=== PATIENT | female | born 1945 | race Caucasian/White ===

== ENCOUNTER 2019-05-14 09:33 | Inpatient (IN) ==
[~2019-05-14 09:33] MED LIST: *HR* Heparin 10,000 UNIT/10 ML VIAL IV ONE; *HR* Magnesium Sulfate 2 GM/50 ML PIGGYBACK IVPB ONE; *HR* Phenylephrine 10 MG/ML VIAL IVC ONE; Albumin Human 25% 25 GM/100 ML IV.SOLN IV ONE; Lidocaine 2% Syringe 100 MG/5 ML IV ONE; Mannitol 25% vial 12.5 GM/50 ML VIAL IVP ONE; Sodium Bicarbonate 50 MEQ/50 ML VIAL IVC ONE; Tranexamic Acid 1,000 MG/10 ML VIAL IVPB ONE
[2019-05-14] MEDS ORDERED: Heparin 1,000 UNITS/500 mL 500 ML ONE ×2 (09:39→11:32)
[2019-05-14] MEDS ORDERED: Nitroglycerin 1,000 MCG/10 ML VIAL IV ONE (09:39)
[2019-05-14] MEDS ORDERED: 0.9 % Sodium Chloride 1,000 ML ONE ×3 (09:39→11:45)
[2019-05-14] MEDS ORDERED: *HR* Heparin 10,000 UNIT/10 ML VIAL ONE (09:39)
[2019-05-14] MEDS ORDERED: Iopamidol 125 ML INFUS..BTL ONE ×2 (09:39→10:49)
[2019-05-14] MEDS ORDERED: 0.9 % Sodium Chloride 1,000 ML IVC SCH (10:00)
--- NOTE | 2019-05-14 10:25 | Cardiology History & Physical ---
Date of Encounter: 05/14/19 Time of Encounter: 12:29 Assessment and Plan (1) Angina decubitus Current Visit: Yes Status: Acute The assessment and plan as outlined above was discussed with the patient and/or family members who expressed understanding and agreement. All questions were answered. (2) Angina of effort Current Visit: Yes Status: Acute The assessment and plan as outlined above was discussed with the patient and/or family members who expressed understanding and agreement. All questions were answered. History of Present Illness Chief complaint: chest pain HPI: Ms. Vasquez is a 74 year old female with cardiac risk facotros of age, HTN , HLD and + FH for CAD. She has had consistent and recurrent exertional angina and underwent stress testing that was abnormal. Symptoms have been persistent on medical therapy. She is referred now for cath Past Med Surg Social Fam HX - Past Medical History Medical history: GERD, hyperlipidemia, hypertension Psychiatric history: anxiety, depression - Past Surgical History Surgical History: hysterectomy Additional surgical history: LEFT ANKLE SURGERY,BILATERAL SHOULDER SURGERY - Social History Smoking Status: Never smoker Smokeless Tobacco Status: No Alcohol use: occasionally Drug use: none Medications and Allergies Losartan Potassium [Cozaar] 100 mg PO DAILY 10/09/18 [History] Metoprolol [Lopressor] 50 mg PO DAILY 10/09/18 [History] Sertraline [Zoloft] 50 mg PO DAILY 10/09/18 [History] hydroCHLOROthiazide [Hydrochlorothiazide] 25 mg PO DAILY 10/09/18 [History] Nitroglycerin [Nitrostat] 0.4 mg SL Q5M PRN 05/14/19 [History] Pregabalin [Lyrica] 50 mg PO BID 05/14/19 [History] Allergy/AdvReac Type Severity Reaction Status Date / Time No Known Allergies Allergy Verified 10/16/17 21:56 All Systems Review: The remainder of the systems were reviewed and are negative negative Physical Examination Vital Signs, Last 4 Hours Temp Pulse Resp BP Pulse Ox 05/14/19 09:59 97.5 F L 66 16 162/64 100 General: Conversant HEENT: Atraumatic Neck: No JVD Cardiac: Normal S1 and S2, No Murmur Lungs: Normal Breath Sounds Neuro: Alert and responsive Abdomen: Soft, Non-Tender Skin: No rashes noted on visualized skin Musculoskeletal: No Chest Wall Tenderness Extremities: No Clubbing Results 05/14/19 11:53
--- NOTE | 2019-05-14 10:27 | Pre-Sedation Evaluation ---
Pre-sedation evaluation - Pre-sedation checklist Date of procedure: 05/14/19 Procedure: [facility] Recent Vitals: Last Vital Signs Temp 97.5 F L 05/14/19 09:59 Pulse 66 05/14/19 09:59 Resp 18 05/14/19 09:59 BP 162/64 05/14/19 09:59 Pulse Ox 100 05/14/19 09:59 H&P (including ROS) documented in medical record: Yes Previous reaction to sedatives/anesthetics: No Dietary Status: NPO after Midnight Dentition: No loose teeth or bridges Possible difficult airway: No ASA Classification *see protocol: CLASS II-Mild systemic disease Cardiac Registry (Cardio Only) - Functional Capacity Functional Capacity: >=4 METS with symptoms - Clincal Frailty Scale Clinical Frailty Scale: Very Fit
[2019-05-14] MEDS ORDERED: *HR* Midazolam HCl 2 MG/2 ML VIAL ONE ×2 (10:32→11:14)
[2019-05-14] MEDS ORDERED: Verapamil 5 MG/2 ML VIAL ONE ×2 (10:35→12:34)
[2019-05-14] MEDS ORDERED: *HR* Atropine Sulfate 1 MG/10 ML SYRINGE ONE (10:53)
[2019-05-14] MEDS ORDERED: *HR* FentaNYL (PF) 100 MCG/2 ML VIAL ONE (10:56)
[2019-05-14] MEDS ORDERED: Nitroglycerin Spray 4.9 GM BOTTLE ONE (11:18)
[2019-05-14] MEDS ORDERED: Nitroglycerin 25 MG/250 ML INFUS..BTL IVC ONE ×2 (11:22→12:44)
[2019-05-14] MEDS ORDERED: Dextrose 50 % in Water (Vial) 30 ML, Sodium Bicarbonate 20 MEQ, Lidocaine 1% 5 ML, Insu... TH ONE ×3 (11:45)
[2019-05-14] MEDS ORDERED: Insulin Human Regular 100 UNIT in 0.9 % Sodium Chloride 100 ML IV PRN (11:45)
[2019-05-14] MEDS ORDERED: Heparin 15,000 UNIT in 0.9 % Sodium Chloride 500 ML IV ONE (11:45)
[2019-05-14] MEDS ORDERED: Norepinephrine 4 MG in 0.9 % Sodium Chloride 250 ML IVC PRN (11:45)
[2019-05-14] MEDS ORDERED: Dextrose 50 % in Water (Vial) 30 ML, Sodium Bicarbonate 20 MEQ, Potassium Chloride 15 M... TH ONE (11:45)
--- NOTE | 2019-05-14 12:00 | Event Note ---
Date of Encounter: 05/14/19 Time of Encounter: 11:57 - Cardiology Event Note Cath completed LV normal RCA very long diffuse severe disease. 90% severity. Unable to cross with wire. Patient was having angina during procedure prompting the attempt at crossing with wire. LCA Mid distal lad lesion 55% Circ normal Given angina in lab, IABP placed for support and set at 1:1 . Patient pain free with IBAP To OR today for urgent cabg. Patient and family updated.
[2019-05-14 12:16] LABS: Basophils # 0.1 K/mcL (0.0-0.2); Basophils % 1.1 %; Eosinophils # 0.2 K/mcL (0.0-0.6); Eosinophils % 2.7 %; Hematocrit 35.5 % (35.3-44.9); Hemoglobin 11.8 g/dL (11.5-15.4); Immature Granulocytes % 0.3 % (0-4); Lymphocytes # 1.9 K/mcL (0.6-4.6); Mean Corpuscular HGB Conc 33.2 g/dL (31.6-35.5); Mean Corpuscular Volume 84.1 fL (83.0-100.0); Mean Platelet Volume 10.4 fL (9.4-12.4); Monocytes # 0.6 K/mcL (0.0-1.3); Monocytes % 8.7 %; Neutrophils # 3.6 K/mcL (1.6-8.9); Platelet Count 240 K/mcL (140-400); Red Blood Count 4.22 M/mcL (3.82-4.97); Red Cell Distribution Width 14.6 % (11.5-14.5); Segmented Neutrophils % 57.2 %; White Blood Count 6.3 K/mcL (4.3-11.1)
[2019-05-14] MEDS ORDERED: FLU Vac QV 19-20 (6Month+)/PF 0.5 ML SYRINGE IM ONE (12:32)
--- NOTE | 2019-05-14 12:33 | Cardiothoracic Consult Note ---
Date of Encounter: 05/14/19 Time of Encounter: 12:29 Assessment and Plan (1) Angina of effort Current Visit: Yes Status: Acute The assessment and plan as outlined above was discussed with the patient and/or family members who expressed understanding and agreement. All questions were answered. The patient has a tight right coronary artery lesion it was unable to be opened with PTCA. We plan to take her to the OR for coronary bypass grafting to the di stal right coronary artery or posterior descending branch of the right coronary artery. This is an emergent procedure. She is presently pain-free on a nitroglycerin drip and a torted balloon pump. The procedure, its risks, benefits and alternatives were explained to the patient and her . Risks of surgery include , infection, bleeding, myocardial infarction, clots around the heart, renal or respiratory failure, acute or chronic graft closure, phrenic nerve injury and sternal dehiscence. The patient and her family wish to proceed. - History of Present Illness History of present illness: Ms. Vasquez is a 74 year old female The patient is a 74-year-old female who underwent cardiac catheterization and attempted PTCA today. The catheterization revealed a tight, 99% right coronary artery lesion that was quite long. A wire could not be placed across the lesion. The LAD has a distal lesion that the takeoff of a diagonal branch, but in most views looks to be widely patent. The patient developed chest pain in the heart catheterization lab. This was initially relieved with a nitroglycerin drip. However, the patient developed recurrent pain and an intra-aortic balloon pump was placed. We plan to take her to the operating room for emergent coronary artery bypass grafting to the right coronary artery. Past medical history is notable for hypertension and hypercholesterolemia. No history of diabetes. There is a strong positive family history for coronary artery disease. The patient lives with her and is an active golfer and assistant coach. She does not smoke. Review of systems is negative for stroke or TIA and negative for saphenous vein varicosities or strippings. Past Med Surg Social Fam HX - Past Medical History Medical history: GERD, hyperlipidemia, hypertension Psychiatric history: anxiety, depression - Past Surgical History Surgical History: hysterectomy Additional surgical history: LEFT ANKLE SURGERY,BILATERAL SHOULDER SURGERY - Social History Smoking Status: Never smoker Smokeless Tobacco Status: No Alcohol use: occasionally Drug use: none Medications and Allergies Losartan Potassium [Cozaar] 100 mg PO DAILY 10/09/18 [History] Metoprolol [Lopressor] 50 mg PO DAILY 10/09/18 [History] Sertraline [Zoloft] 50 mg PO DAILY 10/09/18 [History] hydroCHLOROthiazide [Hydrochlorothiazide] 25 mg PO DAILY 10/09/18 [History] Nitroglycerin [Nitrostat] 0.4 mg SL Q5M PRN 05/14/19 [History] Pregabalin [Lyrica] 50 mg PO BID 05/14/19 [History] Allergy/AdvReac Type Severity Reaction Status Date / Time No Known Allergies Allergy Verified 10/16/17 21:56 All Systems Review: The remainder of the systems were reviewed and are negative Physical Examination Vital Signs, Last 4 Hours Temp Pulse Resp BP Pulse Ox 05/14/19 09:59 97.5 F L 66 16 162/64 100 Pupils are equal, round and reactive to light and accommodation. No oral lesions. Neck is supple. Trachea in the midline. No thyromegaly or carotid bruits. Lungs are clear to percussion and auscultation. Heart is in a regular rate and rhythm. Abdomen is benign. No tenderness, rebound or guarding. Extremities without edema. No saphenous vein varicosities or strippings. Cranial nerves, motor and sensory intact. Results 05/14/19 11:53 Lab Results, Last 24 hours 05/14/19 11:53 WBC 6.3 Hgb 11.8 Hct 35.5 Plt Count 240 Consult Discharge Plan - Plan Referrals: Juan Manuel Wong MD [Primary Care Provider] -
[2019-05-14 12:35] LABS: BUN/Creatinine Ratio 32 (6-26); Blood Urea Nitrogen 16 mg/dL (8-23); Calcium 8.3 mg/dL (8.6-10.3); Carbon Dioxide 23 mEq/L (23-29); Chloride 105 mEq/L (98-107); Estimated Average Glucose 128 mg/dl; Glucose 135 mg/dL (70-105); Osmolality,Calculated 285 (280-300); Potassium 3.2 mEq/L (3.5-5.1); Sodium 136 mEq/L (136-145); eGFR For African Americans > 60 (> 60); eGFR For Non-African Americans > 60 (> 60)
[2019-05-14] MEDS ORDERED: *HR* Midazolam HCl 5 MG/5 ML VIAL IVP ONE (12:35)
[2019-05-14] MEDS ORDERED: *HR* FentaNYL (PF) 1,000 MCG/20 ML VIAL ONE (12:36)
[2019-05-14] MEDS ORDERED: CeFAZolin Syr 2,000MG/20 ML 2,000 MG/20 ML SYRINGE IVPB ONE (12:37)
[2019-05-14] MEDS ORDERED: *HR* Rocuronium Bromide 50 MG/5 ML VIAL ONE ×2 (12:38→15:13)
[2019-05-14] MEDS ORDERED: Dexamethasone 4 MG/ML VIAL ONE (12:38)
[2019-05-14] MEDS ORDERED: *HR* Etomidate 20 MG/10 ML AMPUL IVP ONE (12:39)
[2019-05-14] MEDS ORDERED: *HR* Magnesium Sulfate 1 GM/2 ML VIAL ONE (12:39)
[2019-05-14] MEDS ORDERED: *HR* PHENYLEPHRINE 1,000 MCG/10 ML SYRINGE IVP ONE (12:42)
[2019-05-14] MEDS ORDERED: Lidocaine 2% Syringe 100 MG/5 ML ONE (12:42)
--- NOTE | 2019-05-14 12:50 | Anesthesia Evaluation PreOp ---
Date of Encounter: 05/14/19 Time of Encounter: 12:48 - Past History Planned Operation: CABG Cardiac History: HTN, Hyperlipidemia, Other (CAD, IABP 1:1) Pulmonary History: Denies Any Significant HX THRILL PERFORMER History: Other (anxiety depression) Other Medical History: GERD Anesthesia History: No Prior Anesthetic Complications, Past Anesthesia (bilateral shoulder, hysterectomy) : No Alcohol Use: occasionally Drug use: none Medications and Allergies Losartan Potassium [Cozaar] 100 mg PO DAILY 10/09/18 [History] Metoprolol [Lopressor] 50 mg PO DAILY 10/09/18 [History] Sertraline [Zoloft] 50 mg PO DAILY 10/09/18 [History] hydroCHLOROthiazide [Hydrochlorothiazide] 25 mg PO DAILY 10/09/18 [History] Nitroglycerin [Nitrostat] 0.4 mg SL Q5M PRN 05/14/19 [History] Pregabalin [Lyrica] 50 mg PO BID 05/14/19 [History] Allergy/AdvReac Type Severity Reaction Status Date / Time No Known Allergies Allergy Verified 10/16/17 21:56 - Meds/Allergy Pre-op Review Medications Reviewed: Yes Allergies Reviewed: Yes Beta Blockers on Current Med List: Yes (metoprolol) If Beta Blockers taken, Date/Time (Last Dose taken): 2100 05/13/2019 Anesthesia Results - Labs 05/14/19 11:53 05/14/19 11:53 - Imaging EKG: report reviewed Additional studies: - Cardiology Event Note 05/14/2019 Cath completed LV normal RCA very long diffuse severe disease. 90% severity. Unable to cross with wire. Patient was having angina during procedure prompting the attempt at crossing with wire. LCA Mid distal lad lesion 55% Circ normal Given angina in lab, IABP placed for support and set at 1:1 . Patient pain free with IBAP To OR today for urgent cabg. Patient and family updated. stress 05/10/2019 Impression: Small sized, medium intensity stress perfusion data defect involving the basal and mid inferior segments representing ischemia (SSS 5). Exercise ECG is positive for ischemia. Patient had chest pain/pressure during stress. Gated EF = 60%. Findings communicated to ordering provider. Anesthesia Exam Vital Signs/O2 Sat/Glucose, Most Recent Temp Pulse Resp BP Pulse Ox 96.5 F L 64 18 163/72 100 05/14/19 12:15 05/14/19 12:15 05/14/19 12:15 05/14/19 12:15 05/14/19 12:15 Blood Glucose* 113 Weight: 68 kg NPO (# of Hours): > 8 hr - HEENT Pupil (Motor): Pupils equal Mallampati: II Teeth: Normal Oral Opening: Greater than 3 - THRILL PERFORMER LOC: Oriented THRILL PERFORMER Motor: Normal RUE, Normal LUE, Normal RLE, Normal LLE, Normal Face THRILL PERFORMER Sensory: Normal: RUE, LUE, RLE, LLE, Face - Cardiac Rhythm: Regular Murmur: None - Pulmonary Breath Sounds: bilateral Clear Respiratory Effort: Symmetrical Anesthesia Assess/Plan ASA Score: 4, E Level of consciousness: Cooperative, Oriented Anesthetic Plan: General Monitoring Plan: Standard Monitors, A-Line, CVC, PAC Recovery Plan: ICU
[2019-05-14 13:30] LABS: INR 1.1; Prothrombin Time 12.7 Seconds (9.4-12.1)
[2019-05-14] MEDS ORDERED: Tranexamic Acid 1,000 MG/10 ML VIAL ONE (13:59)
[2019-05-14 14:08] LABS: ABG Base Excess -3 mEq/L (-2 to 3); ABG Chloride 105 mEq/L (98-107); ABG Glucose 131 mg/dL (60-95); ABG HCO3 22 mEq/L (21-27); ABG Ionized Calcium 1.17 mmol/L (1.15-1.35); ABG Oxygen Saturation 100 % (95-98); ABG PCO2 41 mmHg (35-45); ABG PH 7.34 pH Units (7.32-7.45); ABG PO2 357 mmHg (85-104); ABG TCO2 23 mEq/L (20-26)
--- NOTE | 2019-05-14 14:14 | Invasive Diagnostic Lab Proc ---
Name: Angie Vasquez Date of Study: 05/14/2019 Date: 1945 Ht: 63.0in Medical Record#: [id number] Age: 74 Wt: 152.34lb Gender: Female BSA: 1.72 Order #: [id number] BMI: 26.99 Physicians Procedure Physician: Nicholas Ortiz MD Referring MD: Referring MD: Staff Name Position [facility] Pre-Op Nurse Sohan Arevalo RN Pre-Op Nurse Donny Shay RN Monitor 10:29 AM Arabella Salinas RT (R) Scrub 10:29 AM Akila Ferrera RT (R) Scrub 10:30 AM Asif Curry RN Hebrew Teacher 10:30 AM Procedures Performed Procedure L HRT ARTERY/VENTRICLE ANGIO IABP INSERTION, PERCUTANEOUS Pre-Procedure Checklist Informed consent is complete signed and on chart. H&P is on chart. ID band is on and ID verified with patient. Patient NPO for procedure The procedure was described for the patient and questions were answered. Blood Pressure: 162/64 ECG is on chart. Rhythm: Sinus Bradycardia Plan of Care Patient will tolerate the procedure without complications. Adequate level of comfort will be maintained. Hemodynamics will remain stable Patient will recover from procedure without complications. Respiratory function will be maintained. Cardiac rhythm will remain stable. Patient temperature will be maintained. Patient and/or family have verbalized understanding of the procedure. Patient Education Chief Complaint/Reason for Test: Cardiac Cath Developmental Category: Geriatric (65+ years) Developmentally Appropriate for Age: Yes Learning Barriers: None Education Needs: Procedure Education Method: Verbal Information Taught: Cardiac Cath Educational Evaluation: Able to repeat information Intravenous Access Time IV Size Location DC'd Fluid/Drip Rate Units RN 10:09 AM Started with 22g 1 " Rt Antecubital 0.9NaCl 50 ml/hr Sohan Arevalo RN Started with 18g needle 1 1/4" Lt Antecubital Allergies No Known Allergies Vital Signs Time BP (mmHg) HR (bpm) O2 Sat. RR (bpm) LOC 10:12 AM 162 / 64 66 100 % 16 5 = Fully awake and oriented or at pre-proc level 10:32 AM / % 5 = Fully awake and oriented or at pre-proc level 10:33 AM 160 / 59 69 97 % 15 10:37 AM 129 / 71 66 97 % 19 10:42 AM 139 / 72 67 100 % 16 10:47 AM 144 / 69 66 98 % 20 10:52 AM 161 / 79 67 96 % 19 11:02 AM 171 / 68 70 97 % 30 11:07 AM 161 / 82 68 96 % 15 11:12 AM 180 / 100 72 97 % 8 11:17 AM 185 / 99 72 95 % 20 11:22 AM 155 / 82 64 95 % 17 11:27 AM 122 / 61 58 95 % 19 11:31 AM 89 / 48 44 96 % 17 11:37 AM 92 / 50 47 95 % 21 11:42 AM 90 / 57 55 93 % 18 11:47 AM 106 / 54 60 96 % 17 11:52 AM 113 / 49 63 95 % 15 Procedural Medications Time Medication Dose Units Method Given By 10:33 AM Oxygen 2 L/min nasal cannula Asif Curry RN 10:33 AM Versed 2 mg Intravenous Asif Curry RN 10:39 AM Lidocaine 2% 1 ml Subcutaneous Nicholas Ortiz MD 10:41 AM Heparin 4000 units Nitroglycerin 200 mcg Verapamil 2.5 mg Intraarterial Nicholas Ortiz MD 10:56 AM Fentanyl 50 mcg Intravenous Asif Curry RN 10:57 AM Heparin 2000 units Intravenous Asif Curry RN 11:15 AM Versed 2 mg Intravenous Asif Curry RN 11:25 AM Nitro Yantic 0.4 mg Sublingual Asif Curry RN 11:26 AM Nitroglycerin 10 mcg/hr Intravenous Asif Curry RN 11:27 AM Nitroglycerin 5 mcg/min Intravenous Asif Curry RN ASA Classification: CLASS II- Mild systemic disease (i.e. well-controlled diabetes, hypertension, asthma, cigarette smoking) Ramón Score Preprocedure Postprocedure Activity 2- Moves 4 extremities sustained head lift Activity 2- Moves 4 extremities sustained head lift Circulation 2- SBP +/= 20 points of pre-anesthetic level Circulation 2- SBP +/= 20 points of pre-anesthetic level Consciousness 2- Awake and alert oriented x 3 Consciousness 2- Awake and alert oriented x 3 O2 Saturation 2- Able to maintain O2 satruation of 92% on room air O2 Saturation 2- Able to maintain O2 satruation of 92% on room air Respiratory 2- Able to deep breathe and cough well Respiratory 2- Able to deep breathe and cough well Total Score 10 Total Score 10 Contrast Agent: Isovue Diagnostic Contrast: 100 ml Total Contrast: 100 ml Fluoro Dose: 33 mGy Procedure Log Time Note Enter By 10:11 AM Risk for fall? Yes, Medications (change in amt./frequency,newly prescribed,potential combinations) tsites 10:11 AM Evidence of mental, physical, or emotional abuse? No tsites 10:11 AM Does patient have suicidal ideations? No tsites 10:29 AM Pt arrived to lab engineer 2 at 10:29 oparker 10:29 AM Donny Shay RN Position: Monitor Time in: 10: oparker 10:30 AM Arabella Salinas RT (R) Position: Scrub Time in: : oparker 10:30 AM Akila Ferrera RT (R) Position: Scrub Time in: 10:30 oparker 10:30 AM Asif Curry RN Position: Hebrew Teacher Time in: 10:30 oparker 10:30 AM Patient charges- Angio tray pack, Navilyst 3mm J, Pulse Oximetry and ACIST tubing and transducer oparker 10:30 AM IV Supplies used: J loop Angio Cath. oparker 10:31 AM Physician arrived 10:31 oparker 10:31 AM Meet and greet completed oparker 10:31 AM Sign in performed according to hospital policy. Informed consent was obtained. oparker 10:31 AM CathStat 10:31 AM Vitals capture started with the following parameters, Patient=Adult, Interval=5 min, Initial Rktkdgiz=235 mmHg, Deflation Rate=3 mmHg, Cuff placed on Right Arm 10:32 AM Procedure start 10:32 oparker 10:32 AM Time: 10:32 Patient comfortable and pain free: Yes oparker 10:32 AM Time: 10:32LOC: 5 = Fully awake and oriented or at pre-proc level oparker 10:33 AM HR=69 bpm, RSEQ=598/59 mmhg, SpO2=97.0 %, Resp=15 B/min, Comment=nsr 10:33 AM Time: 10:33 Oxygen on at 2 L/min per nasal cannula by Asif Curry RN oparnaz 10:33 AM Time: 10:33 Versed 2 mg Intravenous Given by Asif Curry RN oparker 10:33 AM Hair removed from procedure site in holding area using clippers. Right wrist and Right groin prepped with Chloraprep by Akila Ferrera), then patient was draped. Skin intact. oparker 10:37 AM Time out was performed according to hospital policy. Conscious sedation and anesthesia was achieved (see medication log with in this report above) jcallihan 10:37 AM HR=66 bpm, XCOL=036/71 mmhg, SpO2=97.0 %, Resp=19 B/min, Comment=nsr 10:37 AM ASA Class CLASS II- Mild systemic disease (i.e. well-controlled diabetes, hypertension, asthma, cigarette smoking) jcallihan 10:39 AM Time: 10:39 1 ml Lidocaine 2% to right radial Subcutaneous Given by Nicholas Ortiz MD jcallihan 10:39 AM Pressure channel 2 zeroed. 10:39 AM Recorded ECG: HR=65 Condition=Condition 1 10:40 AM Access obtained by percutaneous puncture. 5/6Fr 10cm Terumo Glidesheath sheath placed in right Radial artery. [id number] jcallihan 10:41 AM Time: 10:41 Patient given 4,000 units Heparin, 200 mcg Nitroglycerin, and 2.5 mg Verapamil Intraarterial by Nicholas Ortiz MD. This is given to reduce risk of vessel spasm and thrombosis. jcallihan 10:42 AM HR=67 bpm, IHAZ=406/72 mmhg, RyG5=028.0 %, Resp=16 B/min, Comment=nsr 10:42 AM 5Fr FL 4 catheter inserted over the wire [facility] jcallihan 10:43 AM Recorded Pressure: Ao, HR=67, Condition=Condition 1 (Aorta) Ao 140/78/103 10:44 AM LCA angiography performed in multiple views. jcallihan 10:45 AM Catheter removed jcallihan 10:46 AM 5Fr FR 4 catheter inserted over the wire DN jcallihan 10:47 AM RCA angiography performed in multiple views. jcallihan 10:47 AM Recorded Pressure: Ao, HR=71, Condition=Condition 1 (Aorta) Ao 163/85/118 10:47 AM HR=66 bpm, MJNT=390/69 mmhg, SpO2=98.0 %, Resp=20 B/min, Comment=nsr 10:48 AM Catheter removed jcallihan 10:50 AM 5Fr Pigtail catheter inserted over the wire [facility] jcallihan 10:50 AM Catheter removed jcallihan 10:50 AM 5Fr FR 4 catheter inserted over the wire [facility] 10:50 AM Catheter crossed the aortic valve and was selectively placed in the left ventricle. Pressures recorded on pullback for left heart catheterization. jcallihan 10:51 AM Recorded Pressure: LV, HR=68, Condition=Condition 1 (Left Ventricle) LV 181/22/32 10:52 AM Recorded Pressure: LV, Ao, HR=72, Condition=Condition 1 (Left Ventricle) LV 184/18/26, (Aorta) Ao 192/94/133 10:52 AM HR=67 bpm, PYCP=442/79 mmhg, SpO2=96.0 %, Resp=19 B/min, Comment=nsr 10:54 AM Bolus angiogram of left Ventricle complete: 10 ml/sec for a total of 10 mls jcallan 10:54 AM Catheter removed jcallan 10:55 AM [facility] AM PCI Status Urgent jcallihan 10:55 AM 6Fr JR 4 Runway guide catheter was used to cannulate the PCI vessel successfully. reused? No jcallihan 10:55 AM .014 Balance 300cm guide wire across target lesion- successful. reused? No [facility] 10[facility] AM Inflation device was opened. jcallihan 10:56 AM Time: 10:56 Fentanyl 50 mcg Intravenous Given by Asif Curry RN [facility] 10[facility] AM Time: 10:57 Heparin 2000 units Intravenous Given by Asif Curry RN [facility] 11:01 AM Recorded Pressure: Ao, HR=67, Condition=Condition 1 (Aorta) Ao 170/67/109 11:02 AM HR=70 bpm, SCSN=247/68 mmhg, SpO2=97.0 %, Resp=30 B/min, Comment=nsr 11:03 AM Recorded Pressure: Ao, HR=69, Condition=Condition 1 (Aorta) Ao 150/70/104 11:05 AM Guide wire removed intact. jcallihan 11:05 AM .014 Choice Extra Support 300cm guide wire across target lesion- successful. reused? No jcallihan 11:07 AM HR=68 bpm, FVHW=409/82 mmhg, SpO2=96.0 %, Resp=15 B/min, Comment=nsr 11:12 AM HR=72 bpm, DOVM=714/100 mmhg, SpO2=97.0 %, Resp=8 B/min 11:14 AM 2.5 mm x 15 mm Emerge OTW balloon across target lesion- successful. reused? No [facility] 11:14 AM Balloon catheter removed intact, unable to cross lesion [facility] 11:14 AM Guide wire removed intact. [facility] 11:14 AM re-inserting 300 cm Balance guidewire. [facility] 11:15 AM Time: 11:15 Versed 2 mg Intravenous Given by Asif Curry RN [facility] 11:17 AM HR=72 bpm, QJIW=217/99 mmhg, SpO2=95 %, Resp=20 B/min 11:18 AM Guide catheter removed intact. [facility] 11:18 AM Guide wire removed intact. [facility] 11:20 AM Conversation between Interventionalist and CT Surgeon. [facility] 11:20 AM Cardiothoracic surgeon consulted by physician paula 11:22 AM HR=64 bpm, ATWY=732/82 mmhg, SpO2=95 %, Resp=17 B/min 11: AM Time: 11:25 Nitro Yantic 0.4 mcg Sublingual [facility] 11:27 AM Time: 11: Nitroglycerin 10 mcg/hr Intravenous Given by Asif Curry RN 11:27 AM HR=58 bpm, MQVM=898/61 mmhg, SpO2=95 %, Resp=19 B/min 11: AM Time: 11: Nitroglycerin 5 mcg/min Intravenous Given [facility] 11: AM Nitroglycerin gtt stopped. [facility] 11:29 AM NIBP STAT measurement started. 11:31 AM HR=44 bpm, NIBP=89/48 mmhg, SpO2=96 %, Resp=17 B/min 11:32 AM 8 Fr Maquet Balloon Pump IABP catheter inserted into right Femoral artery, 40 cc, *ACC* catheter inserted 11 jcallihan 11:37 AM HR=47 bpm, NIBP=92/50 mmhg, SpO2=95 %, Resp=21 B/min 11:42 AM HR=55 bpm, NIBP=90/57 mmhg, SpO2=93 %, Resp=18 B/min 11:44 AM IABP Settings: 1:1 ratio ECG trigger [facility] 11:44 AM IABP Augmented pressure, mean: 109 jcallihan 11:44 AM IABP Systemic BP: 90/57 jcallihan 11:46 AM Procedure completed at 11:46 05/14/2019 [facility] 11:46 AM Did you address ESTRELLA flow and Dominance? YesCoronary Dominance: right jcallihan 11:47 AM HR=60 bpm, UAIM=827/54 mmhg, SpO2=96 %, Resp=17 B/min 11:49 AM labs drawn and mrsa swab obtained jcallihan 11:52 AM HR=63 bpm, RTEH=743/49 mmhg, SpO2=95 %, Resp=15 B/min 11:52 AM Sign out completed: Radiation Dose 398 mGy, 33 Gy/cm2 Fluoro Time: 11.6 Isovue 370 - 200ml contrast 100 ml given by Nicholas Ortiz MD. Complications: None. The patient was discharged out of the mason tender restoration labor in stable condition. Sedation minutes 120. Cardiac Rehab Consult needed: Yes. Confirmed administered medications: Yes jcallihan 11:53 AM Isovue 370 - 200ml,2 Bottle(s) used. allih 11:53 AM Sheath left in place to be pulled on floor/holding areaV+Pad jcallihan 11:53 AM Estimated Blood Loss: less than 20cc jcallihan 11:54 AM Post ECG NSR jcallihan 11:54 AM Post Blood Pressure 113/49 jcallan 11:54 AM 11:54 Post Pulses Bilateral DP & PT 2+ jcallihan 11:54 AM Information taught Cardiac Cath [facility] 11:54 AM Education needs Procedure, Plan of Care, and [facility]ibilities of [facility] 11[facility] AM Learning barriers :None [facility] 11:54 AM Education Methods Verbal [facility] 11:54 AM Education evaluation Able to repeat information [facility] 11:55 AM Site status No bleeding/ No Hematoma - Rt Groin and right wrist as reported by Arabella Salinas RT (R) at 11:54 [facility] 12[facility] PM Report given to Pili TABARES Pt taken to ICU Room #10. 12:01 [facility] 12:01 PM Delay to floor No jcallihan 12:01 PM Family placed in consult room. vicentaallelisabeth 12:[address] chakraborty in lab to speak with patient paula 12:05 PM Lesion found in Mid RCA. Pre Stenosis: 95 Pre ESTRELLA Flow: jcallihan 12:07 PM Lesion found in Distal LAD. Pre Stenosis: 50 Pre ESTRELLA Flow: jcallihan 12:07 PM Patient out of room: 12:07 paula Complications Complication None Hemodynamics Pressures Site Systolic/A Wave Diastolic/V Wave Mean AO 140 78 103 AO 163 85 118 LV 181 22 32 LV 184 18 26 AO 192 94 133 AO 170 67 109 AO 150 70 104 Post Procedure Information Blood Pressure: 113/49 mmHg Rhythm: NSR Post procedural instructions were given Surgery consult for CABG Closure Device Time Device Success/Fail 05/14/2019 12:01:00 PM Manual Compression Site Checks Time Location Status Staff Sheath In? Note 11:54 AM Rt Groin and right wrist No bleeding/ No Hematoma Arabella Salinas RT (R) Pulses Time Site Pre-Procedure Post-Procedure Note 05/14/2019 10:11:00 AM Bilateral DP & PT 1+ 05/14/2019 10:11:00 AM Bilateral radial 2+ 11:54:00 AM Bilateral DP & PT 1+ Updated by Donny Shay RN on 05/14/2019 12:15:14 PM electronically signed on 05/14/2019 2:06:00 PM with status of Final
[2019-05-14] MEDS ORDERED: Famotidine 20 MG/2 ML VIAL ONE (14:16)
[2019-05-14] MEDS ORDERED: Calcium Gluconate 1,000 MG/10 ML VIAL ONE (14:43)
[2019-05-14] MEDS ORDERED: Protamine Sulfate 250 MG/25 ML VIAL IVP ONE (14:43)
--- NOTE | 2019-05-14 14:50 | Anesthesia Procedures ---
Date of Encounter: 05/14/19 Time of Encounter: 14:49 Procedures: Anesthesia - Central Line Placement Right IJ Consent obtained: written consent Time out performed: Yes Patient placed on monitor/pulse ox: Yes MD prep: mask, gown, gloves Central line prep: Chlorhexidine scrub Local Anesthetic Used: Other (general anesthesia ) Ultrasound used for placement: Yes Technique: Seldinger Lumen Inserted: single Size / Length: 9 Fr / 10 cm Post procedure: sutured in place, good blood return, all ports aspirated, flushed, capped, sterile dressing applied Patient tolerated procedure: well, no complications Complications: none Vitals: see anesthesia records
[2019-05-14 14:54] LABS: ABG Base Excess 2 mEq/L (-2 to 3); ABG Chloride 101 mEq/L (98-107); ABG Glucose 199 mg/dL (60-95); ABG HCO3 26 mEq/L (21-27); ABG Ionized Calcium 0.91 mmol/L (1.15-1.35); ABG Oxygen Saturation 100 % (95-98); ABG PCO2 36 mmHg (35-45); ABG PH 7.47 pH Units (7.32-7.45); ABG PO2 557 mmHg (85-104); ABG TCO2 27 mEq/L (20-26)
[2019-05-14] MEDS ORDERED: *HR* Dextrose 50 % in Water (Syg) 50 ML SYRINGE IVP PRN (16:08)
[2019-05-14] MEDS ORDERED: Insulin Regular, Human 100 UNIT/ML IV PRN (16:08)
[2019-05-14] MEDS ORDERED: Naloxone 0.4 MG/ML INJ IVP PRN (16:08)
[2019-05-14] MEDS ORDERED: *HR* Promethazine 25 MG/ML VIAL IVP PRN (16:08)
[2019-05-14] MEDS ORDERED: Acetaminophen 325 MG TABLET PO PRN (16:08)
[2019-05-14] MEDS ORDERED: Insulin Human Regular 100 UNIT in 0.9 % Sodium Chloride 100 ML IVC SCH (16:15)
--- NOTE | 2019-05-14 16:34 | Anesthesia Evaluation Post Op ---
Date of Encounter: 05/14/19 Time of Encounter: 16:34 - Vital Signs Vital Signs: Vital Signs/O2 Sat/Glucose, Most Recent Temp Pulse Resp BP Pulse Ox 96.5 F L 62 18 153/55 100 05/14/19 12:15 05/14/19 13:00 05/14/19 13:00 05/14/19 13:00 05/14/19 13:00 Blood Glucose* 113 - Lungs Lungs: Clear Ascult./Percussion - Airway Airway: Intubated - Cardiovascular Baseline Rhythm - Mental Status Mental Status: Sedated - Pain Pain Scale used: Unable to assess - Nausea Vomiting Nausea Vomiting: Not Present - Hydration Hydration: NPO - Discharge Attestation: patient remains in ICU s/p CABG in stable condition
[2019-05-14 16:47] LABS: ABG Base Excess 0 mEq/L (-2 to 3); ABG HCO3 25 mEq/L (21-27); ABG Oxygen Saturation 99 % (95-98); ABG PCO2 39 mmHg (35-45); ABG PH 7.41 pH Units (7.32-7.45); ABG PO2 114 mmHg (85-104); ABG TCO2 26 mEq/L (20-26); Blood Gas Modality ASSIST CONTROL; Blood Gas PEEP 5 cm H2O; Blood Gas VT 600 cc
[2019-05-14 16:53] LABS: Basophils # 0.1 K/mcL (0.0-0.2); Basophils % 0.5 %; Eosinophils # 0.1 K/mcL (0.0-0.6); Eosinophils % 0.4 %; Hematocrit 32.9 % (35.3-44.9); Hemoglobin 11.3 g/dL (11.5-15.4); Immature Granulocytes % 0.9 % (0-4); Lymphocytes # 1.4 K/mcL (0.6-4.6); Lymphocytes % 8.9 %; Mean Corpuscular HGB Conc 34.3 g/dL (31.6-35.5); Mean Corpuscular Hemoglobin 28.5 pg (28.0-33.3); Mean Corpuscular Volume 83.1 fL (83.0-100.0); Mean Platelet Volume 9.9 fL (9.4-12.4); Monocytes # 0.9 K/mcL (0.0-1.3); Monocytes % 5.8 %; Neutrophils # 13.4 K/mcL (1.6-8.9); Platelet Count 186 K/mcL (140-400); Red Blood Count 3.96 M/mcL (3.82-4.97); Red Cell Distribution Width 14.4 % (11.5-14.5); Segmented Neutrophils % 83.5 %
[2019-05-14] MEDS: Nitroglycerin 25 MG/250 ML INFUS..BTL IVC SCH (17:00)
[2019-05-14 17:01] LABS: INR 1.1; Prothrombin Time 12.7 Seconds (9.4-12.1)
[2019-05-14 17:02] LABS: White Blood Count 16.1 K/mcL (4.3-11.1)
[2019-05-14 17:04] LABS: Activated Partial Thrombo Time 28.3 Seconds (26.0-36.0)
[2019-05-14 17:12] LABS: BUN/Creatinine Ratio 24 (6-26); Blood Urea Nitrogen 13 mg/dL (8-23); Carbon Dioxide 25 mEq/L (23-29); Chloride 107 mEq/L (98-107); Glucose 126 mg/dL (70-105); Magnesium 2.4 mg/dL (1.6-2.6); Osmolality,Calculated 290 (280-300); Potassium 3.3 mEq/L (3.5-5.1); Sodium 139 mEq/L (136-145); eGFR For African Americans > 60 (> 60); eGFR For Non-African Americans > 60 (> 60)
--- NOTE | 2019-05-14 17:20 | Operative Note ---
Date of procedure: 05/14/19 Pre-op diagnosis: Coronary artery disease Post-op diagnosis: same Procedure: Coronary bypass grafting 1 with a saphenous vein graft to the posterior descending branch of the right coronary artery. Anesthesia: GETA Surgeon: David Vo Was there an tv production assistant present: Yes Wet Cotton Feeder: Js Fitch Estimated blood loss (cc): 500 Specimen: none Condition: critical Disposition: ICU Procedure in Detail: The patient is a 74-year-old female who was undergoing cardiac catheterization. She was found to have a tight, long 99% lesion in her main right coronary artery. They were unable to pass a wire or perform angioplasty. 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 This was relieved with a nitroglycerin drip followed by a an intra-aortic balloon pump. The patient was taken emergently to the OR where she underwent a general anesthetic. She was prepped and draped in standard fashion. The left greater saphenous vein was harvested from the left knee to the left groin. This was done through 2 small incisions using a scope. Incisions were subsequently closed using a deep layer of 2-0 Vicryl and a 3-0 Vicryl subcuticular stitch. Standard median sternotomy was performed. Pericardium was opened in the midline and suspended with 2-0 silk stay sutures. A double pursestring of 200 Surgilon was placed in the aorta for the aortic cannulation site. A pursestring of 20 Surgilon was placed in the right atrial appendage for the venous uptake. The patient was heparinized. The aorta was cannulated without difficulty. 2 stage venous uptake cannula was inserted through the right atrial appendage. A pursestring of 3-0 silk was placed in the aorta and the cardioplegia needle was inserted through here. This was also used is an active and passive aortic vent. The patient was placed on cardiopulmonary bypass and cooled to 35.1 degrees. At this point, the aorta was crossclamped and a liter of antegrade cardioplegia was given. Topical cooling with iced saline slush was also used. Attention was turned to the right coronary artery. The main right coronary artery was 2 diffusely diseased for grafting. The proximal posterior descending branch was dissected free with the [place] blade and opened with a [place] blade and the Grant scissors. Proximally it had moderate plaquing. Distally, it had minimal plaquing. A standard end-to-side anastomosis was constructed using the saphenous vein and a 7-0 Prolene. When this is completed, the cross-clamp was removed. A side biting clamp was placed on the aorta and the cardioplegia needle was removed. A hole was made in the aorta using the [place] blade and the 4.0 mm aortic punch. A standard end-to-side anastomosis was constructed using the saphenous vein and a 5-0 Prolene. When this is completed, the side-biting clamp was removed. The graft was de-aired using #25-gauge needle and the previously placed bulldog clamp was removed. The distal anastomosis was inspected and found to be hemostatic. The proximal anastomosis was marked with a marker from a Ray-Yamilka sponge. A pair of ventricular pacing wires was left. A 42 mediastinal chest tube was left and a 32 straight mediastinal chest tube. The patient was weaned from bypass and decannulated. Protamine was given. Hemostasis was good and the hemodynamics were good. Pericardium was loosely closed with 2-0 silk sutures. We did use platelet rich and platelet poor plasma to the sternum and tissues above the sternum. The sternum was closed with #7 sternal wires in simple and vskpco-ey-poyjt fashion. The fascia was run with #1 Vicryl. Subcutaneous tissues tissues was closed with a 2-0 Vicryl. Skin was closed with a 3-0 Vicryl subcuticular stitch. The patient tolerated the procedure well and was returned to the intensive care unit in satisfactory condition. Total bypass time was 39 minutes. Total cross-clamp time was 20 minutes. She been cooled to 35.1 degrees.
[2019-05-14] MEDS: 0.9 % Sodium Chloride 1,000 ML IVC SCH (17:27)
[2019-05-14] MEDS: *HR* FentaNYL (PF) 100 MCG/2 ML VIAL IVP PRN ×3 (17:37→19:40)
[2019-05-14] MEDS: niCARdipine 20 MG/200 ML MLS IVC SCH ×2 (19:56→21:19)
[2019-05-14] MEDS: Pregabalin 50 MG CAPSULE PO SCH (20:01)
[2019-05-14 20:31] LABS: ABG Base Excess -1 mEq/L (-2 to 3); ABG HCO3 25 mEq/L (21-27); ABG Oxygen Saturation 99 % (95-98); ABG PCO2 43 mmHg (35-45); ABG PH 7.36 pH Units (7.32-7.45); ABG PO2 143 mmHg (85-104); ABG TCO2 26 mEq/L (20-26); Blood Gas PEEP 5 cm H2O; Blood Gas VT 600 cc
[2019-05-14] MEDS ORDERED: Chlorhexidine Rinse 15 ML MOUTHWASH MM SCH (21:00)
[2019-05-14 21:22] LABS: Hematocrit 33.5 % (35.3-44.9); Hemoglobin 11.6 g/dL (11.5-15.4)
[2019-05-14] MEDS: Chlorhexidine Rinse 15 ML MOUTHWASH MM SCH (21:22)
[2019-05-14] MEDS: Potassium Chloride 40 MEQ/200 ML BAG IVPB PRN ×2 (21:51→23:12)
[2019-05-15 00:22] LABS: ABG Base Excess -2 mEq/L (-2 to 3); ABG HCO3 22 mEq/L (21-27); ABG Oxygen Saturation 97 % (95-98); ABG PCO2 34 mmHg (35-45); ABG PH 7.42 pH Units (7.32-7.45); ABG PO2 83 mmHg (85-104); ABG TCO2 23 mEq/L (20-26); Blood Gas PEEP 5 cm H2O; Blood Gas VT 600 cc
[2019-05-15] MEDS: niCARdipine 20 MG/200 ML MLS IVC SCH ×5 (00:31→19:18)
[2019-05-15 01:02] LABS: ABG Base Excess -1 mEq/L (-2 to 3); ABG HCO3 24 mEq/L (21-27); ABG Oxygen Saturation 95 % (95-98); ABG PCO2 43 mmHg (35-45); ABG PH 7.36 pH Units (7.32-7.45); ABG PO2 77 mmHg (85-104); ABG TCO2 25 mEq/L (20-26); Blood Gas PEEP 5 cm H2O; Blood Gas Pressure Support 5 cm H2O
[2019-05-15 03:33] LABS: ABG Base Excess -2 mEq/L (-2 to 3); ABG HCO3 23 mEq/L (21-27); ABG Oxygen Saturation 93 % (95-98); ABG PCO2 41 mmHg (35-45); ABG PH 7.36 pH Units (7.32-7.45); ABG PO2 68 mmHg (85-104); ABG TCO2 24 mEq/L (20-26)
[2019-05-15] MEDS: *HR* FentaNYL (PF) 100 MCG/2 ML VIAL IVP PRN (05:00)
[2019-05-15 05:01] LABS: BUN/Creatinine Ratio 28 (6-26); Blood Urea Nitrogen 14 mg/dL (8-23); Calcium 7.8 mg/dL (8.6-10.3); Carbon Dioxide 23 mEq/L (23-29); Chloride 110 mEq/L (98-107); Glucose 140 mg/dL (70-105); Magnesium 2.1 mg/dL (1.6-2.6); Osmolality,Calculated 293 (280-300); Potassium 3.9 mEq/L (3.5-5.1); Sodium 140 mEq/L (136-145); eGFR For African Americans > 60 (> 60); eGFR For Non-African Americans > 60 (> 60)
[2019-05-15 05:47] LABS: Activated Partial Thrombo Time 23.7 Seconds (26.0-36.0); INR 1.2; Prothrombin Time 13.3 Seconds (9.4-12.1)
[2019-05-15 05:48] LABS: Basophils % 0.1 %; Hematocrit 23.8 % (35.3-44.9); Hemoglobin 8.1 g/dL (11.5-15.4); Immature Granulocytes % 0.5 % (0-4); Lymphocytes # 1.1 K/mcL (0.6-4.6); Lymphocytes % 7.5 %; Mean Corpuscular Hemoglobin 28.3 pg (28.0-33.3); Mean Corpuscular Volume 83.2 fL (83.0-100.0); Mean Platelet Volume 10.8 fL (9.4-12.4); Monocytes # 1.5 K/mcL (0.0-1.3); Platelet Count 190 K/mcL (140-400); Red Blood Count 2.86 M/mcL (3.82-4.97); Red Cell Distribution Width 14.7 % (11.5-14.5); Segmented Neutrophils % 81.9 %; White Blood Count 14.6 K/mcL (4.3-11.1)
[2019-05-15] MEDS: Nitroglycerin 25 MG/250 ML INFUS..BTL IVC SCH ×2 (06:18→19:17)
[2019-05-15] MEDS: 0.9 % Sodium Chloride 1,000 ML IVC SCH (06:18)
[2019-05-15] MEDS: Ondansetron 4 MG/2 ML VIAL IVP PRN ×2 (07:00→16:17)
--- NOTE | 2019-05-15 07:32 | Cardiothoracic Progress Note ---
Date of Encounter: 05/15/19 Time of Encounter: 07:30 - Assessment and plan (1) Angina of effort Current Visit: Yes Status: Acute The patient's hemoglobin is 8.1. She does have the usual, expected acute postoperative blood loss anemia. We will not transfuse her unless she becomes symptomatic or her hemoglobin is less than 7. The intra-aortic balloon pump was removed. We will discontinue her IV fluids, arterial line and intra-aortic balloon pump. We will leave her Koenig catheter until tomorrow when the chest tubes are removed per the patient's request. We will leave the patient in the intensive care unit for now. - Subjective Interval history: The patient is extubated. She complains of moderate postoperative pain. Vital Signs, Last 4 Hours Temp Pulse Resp BP Pulse Ox 05/15/19 07:10 99.3 F 90 20 109/49 96 05/15/19 03:49 12 100/46 94 Oxgyen Flow Rate Oxygen Flow Rate (LPM) 2 Clinical Data, last 8 Hours Output, Chest Tube Drainage 770 Amount [Mediastinal #1] Output, Chest Tube Drainage 600 Amount [Mediastinal #1] Output, Chest Tube Drainage 290 Amount [Mediastinal #2] Output, Chest Tube Drainage 210 Amount [Mediastinal #2] Weight 05/13/19 05/14/19 05/15/19 23:59 23:59 23:59 Weight 68.946 kg Lungs are clear to percussion and auscultation. Heart is in a normal sinus rhythm. All incisions are healing well without signs of infection and the sternum is stable. Chest tube drainage is minimal and there is no air leak. - Labs 05/15/19 04:15 05/15/19 04:15 Lab Results, Last 24 hours 05/14/19 05/14/19 05/14/19 11:50 11:53 11:53 WBC 6.3 Hgb 11.8 Hct 35.5 Plt Count 240 INR 1.1 APTT Sodium 136 Potassium 3.2 L Chloride 105 Carbon Dioxide 23 BUN 16 Creatinine 0.50 L Glucose 135 H Calcium 8.3 L Magnesium 05/14/19 05/14/19 05/14/19 16:40 16:40 16:40 WBC 16.1 H D Hgb 11.3 L Hct 32.9 L Plt Count 186 INR 1.1 APTT 28.3 Sodium 139 Potassium 3.3 L Chloride 107 Carbon Dioxide 25 BUN 13 Creatinine 0.54 L Glucose 126 H Calcium 8.0 L Magnesium 2.4 05/14/19 05/14/19 05/15/19 21:00 21:10 04:15 WBC 14.6 H Hgb 11.6 8.1 L D Hct 33.5 L 23.8 L Plt Count 190 INR APTT Sodium Potassium 3.2 L Chloride Carbon Dioxide BUN Creatinine Glucose Calcium Magnesium 05/15/19 05/15/19 04:15 04:15 WBC Hgb Hct Plt Count INR 1.2 APTT 23.7 L Sodium 140 Potassium 3.9 Chloride 110 H Carbon Dioxide 23 BUN 14 Creatinine 0.50 L Glucose 140 H Calcium 7.8 L Magnesium 2.1 Consult Discharge Plan - Plan Referrals: Juan Manuel Wong MD [Primary Care Provider] -
[2019-05-15] MEDS: Chlorhexidine Rinse 15 ML MOUTHWASH MM SCH ×2 (09:04→19:38)
[2019-05-15] MEDS: Aspirin Enteric Coated 81 MG Tablet PO SCH (09:04)
[2019-05-15] MEDS: Pantoprazole 40 MG VIAL IVP SCH (09:04)
[2019-05-15] MEDS: Pregabalin 50 MG CAPSULE PO SCH ×2 (09:04→19:38)
[2019-05-15] MEDS: *HR* OxyCODONE/APAP 5/325 TABLET PO PRN ×4 (09:05→21:48)
[2019-05-15] MEDS ORDERED: Dextrose Gel 15 GM/37.5 ML TUBE PO PRN ×2 (13:48)
[2019-05-15] MEDS ORDERED: D5% in Water 1,000 ML IVC PRN (13:48)
[2019-05-15] MEDS ORDERED: *HR* Dextrose 50 % in Water (Syg) 50 ML SYRINGE IVP PRN (13:48)
[2019-05-15] MEDS: Norepinephrine 4 MG in 0.9 % Sodium Chloride 250 ML IVC SCH (19:16)
[2019-05-15] MEDS ORDERED: Insulin LISPRO 300 UNITS/3 ML VIAL SQ SCH (21:00)
[2019-05-16] MEDS: niCARdipine 20 MG/200 ML MLS IVC SCH ×6 (00:41→16:22)
[2019-05-16] MEDS: Nitroglycerin 25 MG/250 ML INFUS..BTL IVC SCH ×2 (03:41→10:23)
[2019-05-16 03:45] LABS: Basophils % 0.2 %; Eosinophils % 0.1 %; Hematocrit 18.8 % (35.3-44.9); Immature Granulocytes % 0.4 % (0-4); Lymphocytes # 1.5 K/mcL (0.6-4.6); Lymphocytes % 13.1 %; Mean Corpuscular HGB Conc 33.5 g/dL (31.6-35.5); Mean Corpuscular Volume 86.6 fL (83.0-100.0); Mean Platelet Volume 10.4 fL (9.4-12.4); Monocytes # 1.2 K/mcL (0.0-1.3); Monocytes % 10.4 %; Neutrophils # 8.4 K/mcL (1.6-8.9); Platelet Count 132 K/mcL (140-400); Red Blood Count 2.17 M/mcL (3.82-4.97); Red Cell Distribution Width 15.6 % (11.5-14.5); Segmented Neutrophils % 75.8 %; White Blood Count 11.1 K/mcL (4.3-11.1)
[2019-05-16 03:46] LABS: Hemoglobin 6.3 g/dL (11.5-15.4)
[2019-05-16 04:04] LABS: BUN/Creatinine Ratio 30 (6-26); Blood Urea Nitrogen 19 mg/dL (8-23); Calcium 8.1 mg/dL (8.6-10.3); Carbon Dioxide 25 mEq/L (23-29); Chloride 105 mEq/L (98-107); Glucose 141 mg/dL (70-105); Osmolality,Calculated 285 (280-300); Potassium 3.8 mEq/L (3.5-5.1); Sodium 135 mEq/L (136-145); eGFR For African Americans > 60 (> 60); eGFR For Non-African Americans > 60 (> 60)
[2019-05-16] MEDS: *HR* OxyCODONE/APAP 5/325 TABLET PO PRN ×4 (06:49→21:34)
[2019-05-16] MEDS: Aspirin Enteric Coated 81 MG Tablet PO SCH (07:21)
[2019-05-16] MEDS: Pregabalin 50 MG CAPSULE PO SCH ×2 (07:21→21:34)
[2019-05-16] MEDS: Pantoprazole 40 MG VIAL IVP SCH (07:21)
[2019-05-16] MEDS: Chlorhexidine Rinse 15 ML MOUTHWASH MM SCH ×2 (07:22→21:33)
[2019-05-16] MEDS ORDERED: Insulin LISPRO 300 UNITS/3 ML VIAL SQ SCH (07:30)
[2019-05-16] MEDS ORDERED: 0.9 % Sodium Chloride 250 ML ONE (08:13)
[2019-05-16] MEDS ORDERED: Furosemide 20 MG/2 ML VIAL IVP ONE (08:19)
--- NOTE | 2019-05-16 08:23 | Cardiothoracic Progress Note ---
Date of Encounter: 05/16/19 Time of Encounter: 08:21 - Assessment and plan (1) Anemia due to blood loss, acute Current Visit: Yes Status: Acute The assessment and plan as outlined above was discussed with the patient and/or family members who expressed understanding and agreement. All questions were answered. informed patient of the decreasing trend in the h/h after open heart surgery and acute mi. tx 2 units and give lasix between units. check labs in am (2) Angina of effort Current Visit: Yes Status: Acute The assessment and plan as outlined above was discussed with the patient and/or family members who expressed understanding and agreement. All questions were answered. remove drains for moody today. Vital Signs, Last 4 Hours Pulse Resp BP Pulse Ox 05/16/19 07:00 86 18 99/54 94 05/16/19 06:00 87 16 98/56 93 05/16/19 05:00 89 16 94/52 93 Oxgyen Flow Rate Oxygen Flow Rate (LPM) 3 Weight 05/14/19 05/15/19 05/16/19 23:59 23:59 23:59 Weight 68.946 kg - Physical Examination General: Conversant, No Apparent Distress, Well developed, Well nourished HEENT: Atraumatic, Normocephaly Neck: No JVD Cardiac: Reg Rate and Rhythm, Normal S1 and S2 Incision: No signs of infection, Dry/intact dressing Sternum: Stable Chest tubes: Minimal drainage Lungs: Normal Breath Sounds Neuro: Alert and responsive, No focal deficits noted, Cranial nerves intact, Motor nerves intact Abdomen: Soft, Non-tender, Other (flatus last night ) Extremities: No Edema, Normal Pulses - Labs 05/16/19 03:21 05/16/19 03:21 Lab Results, Last 24 hours 05/16/19 05/16/19 03:21 03:21 WBC 11.1 Hgb 6.3 L D Hct 18.8 L Plt Count 132 L Sodium 135 L Potassium 3.8 Chloride 105 Carbon Dioxide 25 BUN 19 Creatinine 0.64 Glucose 141 H Calcium 8.1 L - Imaging Chest Xray: image reviewed Consult Discharge Plan - Plan Referrals: Juan Manuel Wong MD [Primary Care Provider] -
[2019-05-16] MEDS ORDERED: *HR* Dextrose 50 % in Water (Syg) 50 ML SYRINGE IVP PRN (10:04)
[2019-05-16] MEDS ORDERED: Acetaminophen 325 MG TABLET PO PRN (10:04)
[2019-05-16] MEDS ORDERED: Ondansetron 4 MG/2 ML VIAL IVP PRN (10:04)
[2019-05-16] MEDS ORDERED: Potassium Chloride 40 MEQ/200 ML BAG IVPB PRN (10:04)
[2019-05-16] MEDS ORDERED: Insulin Regular, Human 100 UNIT/ML IV PRN (10:04)
[2019-05-16] MEDS ORDERED: D5% in Water 1,000 ML IVC PRN (10:04)
[2019-05-16] MEDS ORDERED: Dextrose Gel 15 GM/37.5 ML TUBE PO PRN ×2 (10:04)
[2019-05-16] MEDS ORDERED: *HR* Promethazine 25 MG/ML VIAL IVP PRN (10:04)
[2019-05-16] MEDS ORDERED: Naloxone 0.4 MG/ML INJ IVP PRN (10:04)
[2019-05-16] MEDS: Norepinephrine 4 MG in 0.9 % Sodium Chloride 250 ML IVC SCH (10:23)
[2019-05-16] MEDS: Insulin LISPRO 300 UNITS/3 ML VIAL SQ SCH ×3 (11:39→21:33)
[2019-05-17] MEDS: Nitroglycerin 25 MG/250 ML INFUS..BTL IVC SCH ×2 (00:15→07:32)
[2019-05-17] MEDS: niCARdipine 20 MG/200 ML MLS IVC SCH ×2 (00:15→07:28)
[2019-05-17 01:05] LABS: Basophils # 0.1 K/mcL (0.0-0.2); Basophils % 0.5 %; Eosinophils # 0.1 K/mcL (0.0-0.6); Eosinophils % 0.6 %; Hematocrit 27.8 % (35.3-44.9); Hemoglobin 9.1 g/dL (11.5-15.4); Immature Granulocytes % 0.9 % (0-4); Lymphocytes # 2.4 K/mcL (0.6-4.6); Lymphocytes % 15.6 %; Mean Corpuscular HGB Conc 32.7 g/dL (31.6-35.5); Mean Corpuscular Hemoglobin 28.8 pg (28.0-33.3); Mean Platelet Volume 11.3 fL (9.4-12.4); Monocytes # 1.7 K/mcL (0.0-1.3); Monocytes % 10.8 %; Neutrophils # 11.1 K/mcL (1.6-8.9); Nucleated Red Blood Cells 0.1 /100 WBC (0); Platelet Count 127 K/mcL (140-400); Red Blood Count 3.16 M/mcL (3.82-4.97); Red Cell Distribution Width 15.6 % (11.5-14.5); Segmented Neutrophils % 71.6 %; White Blood Count 15.5 K/mcL (4.3-11.1)
[2019-05-17 01:23] LABS: BUN/Creatinine Ratio 25 (6-26); Blood Urea Nitrogen 16 mg/dL (8-23); Calcium 8.2 mg/dL (8.6-10.3); Carbon Dioxide 22 mEq/L (23-29); Chloride 101 mEq/L (98-107); Glucose 146 mg/dL (70-105); Magnesium 2.3 mg/dL (1.6-2.6); Osmolality,Calculated 280 (280-300); Potassium 3.8 mEq/L (3.5-5.1); Sodium 133 mEq/L (136-145); eGFR For African Americans > 60 (> 60); eGFR For Non-African Americans > 60 (> 60)
[2019-05-17] MEDS: *HR* OxyCODONE/APAP 5/325 TABLET PO PRN ×5 (02:14→20:32)
[2019-05-17] MEDS: Norepinephrine 4 MG in 0.9 % Sodium Chloride 250 ML IVC SCH (07:32)
[2019-05-17] MEDS: Insulin LISPRO 300 UNITS/3 ML VIAL SQ SCH ×4 (07:39→20:55)
[2019-05-17] MEDS: Chlorhexidine Rinse 15 ML MOUTHWASH MM SCH ×2 (07:41→19:46)
[2019-05-17] MEDS: Pantoprazole 40 MG VIAL IVP SCH (07:41)
[2019-05-17] MEDS: Aspirin Enteric Coated 81 MG Tablet PO SCH (07:42)
[2019-05-17] MEDS: Pregabalin 50 MG CAPSULE PO SCH ×2 (07:42→19:45)
--- NOTE | 2019-05-17 08:51 | Cardiothoracic Progress Note ---
Date of Encounter: 05/17/19 Time of Encounter: 08:49 - Assessment and plan (1) Angina of effort Current Visit: Yes Status: Acute We will restart the patient's hydrochlorothiazide. We will discontinue the central line. - Subjective Interval history: The patient is tolerating her diet and has only mild postoperative pain. Vital Signs, Last 4 Hours Temp Pulse Resp BP Pulse Ox 05/17/19 07:55 90 05/17/19 07:34 20 96 05/17/19 07:32 97.6 F 89 19 110/66 Oxgyen Flow Rate Oxygen Flow Rate (LPM) 2 Weight 05/15/19 05/16/19 05/17/19 23:59 23:59 23:59 Weight 70.5 kg Lungs are clear to percussion and auscultation. Heart is in a normal sinus rhythm. All incisions are healing well without signs of infection and the sternum is stable. The pacing wires were removed. - Labs 05/17/19 00:22 05/17/19 00:22 Lab Results, Last 24 hours 05/17/19 05/17/19 00:22 00:22 WBC 15.5 H Hgb 9.1 L D Hct 27.8 L Plt Count 127 L Sodium 133 L Potassium 3.8 Chloride 101 Carbon Dioxide 22 L BUN 16 Creatinine 0.64 Glucose 146 H Calcium 8.2 L Magnesium 2.3 Consult Discharge Plan - Plan Referrals: Nicholas Ortiz MD [Partnered Physician] - David Vo MD [Partnered Physician] - Juan Manuel Wong MD [Primary Care Provider] -
[2019-05-17] MEDS: hydroCHLOROthiazide 25 MG TABLET PO SCH (11:02)
--- NOTE | 2019-05-17 12:29 | Electrocardiograph Report ---
[place] [id number] Test Date: 2019-05-14 Pat Name: Angie Vasquez Department: 109 Room: 06 Gender: F Pastry Chef: : 1945 Requested By: David Vo Order Number: [id number] Reading MD: Tan Bravo Measurements Intervals [place] Rate: 71 P: 60 DC: 176 QRS: 3 QRSD: 108 T: 4 QT: 437 QTc: 459 Interpretive Statements SINUS RHYTHM Electronically Signed On 05-17-2019 12:27:17 EDT by Tan Bravo
[2019-05-18] MEDS: *HR* OxyCODONE/APAP 5/325 TABLET PO PRN ×5 (02:45→23:10)
[2019-05-18 05:00] LABS: Basophils # 0.1 K/mcL (0.0-0.2); Basophils % 0.5 %; Eosinophils # 0.2 K/mcL (0.0-0.6); Hematocrit 21.9 % (35.3-44.9); Immature Granulocytes % 1.3 % (0-4); Lymphocytes # 1.3 K/mcL (0.6-4.6); Lymphocytes % 12.8 %; Mean Corpuscular Hemoglobin 28.9 pg (28.0-33.3); Mean Corpuscular Volume 90.5 fL (83.0-100.0); Mean Platelet Volume 10.1 fL (9.4-12.4); Monocytes # 0.9 K/mcL (0.0-1.3); Monocytes % 8.3 %; Neutrophils # 7.7 K/mcL (1.6-8.9); Nucleated Red Blood Cells 0.4 /100 WBC (0); Platelet Count 149 K/mcL (140-400); Red Blood Count 2.42 M/mcL (3.82-4.97); Red Cell Distribution Width 15.7 % (11.5-14.5); Segmented Neutrophils % 75.1 %; White Blood Count 10.2 K/mcL (4.3-11.1)
[2019-05-18 05:17] LABS: BUN/Creatinine Ratio 28 (6-26); Blood Urea Nitrogen 16 mg/dL (8-23); Calcium 8.1 mg/dL (8.6-10.3); Carbon Dioxide 21 mEq/L (23-29); Chloride 102 mEq/L (98-107); Glucose 139 mg/dL (70-105); Osmolality,Calculated 281 (280-300); Potassium 3.2 mEq/L (3.5-5.1); Sodium 134 mEq/L (136-145); eGFR For African Americans > 60 (> 60); eGFR For Non-African Americans > 60 (> 60)
[2019-05-18] MEDS: Insulin LISPRO 300 UNITS/3 ML VIAL SQ SCH ×4 (07:46→19:50)
[2019-05-18] MEDS: Pregabalin 50 MG CAPSULE PO SCH ×2 (07:51→19:49)
[2019-05-18] MEDS: hydroCHLOROthiazide 25 MG TABLET PO SCH (07:52)
[2019-05-18] MEDS: Chlorhexidine Rinse 15 ML MOUTHWASH MM SCH ×2 (07:52→19:50)
[2019-05-18] MEDS: Aspirin Enteric Coated 81 MG Tablet PO SCH (07:52)
[2019-05-18] MEDS: Pantoprazole 40 MG VIAL IVP SCH (07:52)
--- NOTE | 2019-05-18 08:47 | Cardiothoracic Progress Note ---
Date of Encounter: 05/18/19 Time of Encounter: 08:43 - Assessment and plan (1) Angina of effort Current Visit: Yes Status: Acute Her hemoglobin is 7. There is no evidence of blood loss. We will give her 1 unit of packed red blood cells. She does have the usual, expected acute postoperative blood loss anemia. She does have evidence of peripheral edema and we will place her on IV Lasix. We will order MiraLAX for constipation. She has been on hydrochlorothiazide and is probably chronically potassium depleted. Her potassium is low, so we will start by mouth potassium. - Subjective Interval history: The patient complains of mild constipation. Vital Signs, Last 4 Hours Temp Pulse Resp BP Pulse Ox 05/18/19 07:53 17 96 05/18/19 07:36 99.7 F H 87 16 116/60 95 Oxgyen Flow Rate Oxygen Flow Rate (LPM) 3.5 Clinical Data, last 8 Hours Output, Urine Amount 500 Weight 05/16/19 05/17/19 05/18/19 23:59 23:59 23:59 Weight 70.5 kg Lungs are clear to percussion and auscultation. Heart is in a normal sinus rh ythm. All incisions are healing well without signs of infection and the sternum is stable. The patient has evidence of peripheral edema. - Labs 05/18/19 04:45 05/18/19 04:45 Lab Results, Last 24 hours 05/18/19 05/18/19 04:45 04:45 WBC 10.2 Hgb 7.0 L D Hct 21.9 L Plt Count 149 Sodium 134 L Potassium 3.2 L Chloride 102 Carbon Dioxide 21 L BUN 16 Creatinine 0.58 L Glucose 139 H Calcium 8.1 L Consult Discharge Plan - Plan Referrals: Nicholas Ortiz MD [Partnered Physician] - (Per the cardiology office they will call the patient at home with a follow up appointment) David Vo MD [Partnered Physician] - 06/10/19 1:00 pm Juan Manuel Wong MD [Primary Care Provider] - 05/28/19 9:30 am
[2019-05-18] MEDS: Furosemide 20 MG/2 ML VIAL IVP SCH ×2 (10:03→19:49)
[2019-05-18] MEDS ORDERED: 0.9 % Sodium Chloride 250 ML ONE (11:27)
[2019-05-18] MEDS ORDERED: Bisacodyl 10 MG RECTAL SUPPOSITORY RC PRN (20:51)
[2019-05-19] MEDS: Ketorolac 15 MG/ML VIAL IVP PRN ×2 (00:16→08:12)
[2019-05-19 00:37] LABS: Basophils % 0.4 %; Eosinophils # 0.2 K/mcL (0.0-0.6); Hematocrit 25.8 % (35.3-44.9); Lymphocytes # 1.5 K/mcL (0.6-4.6); Lymphocytes % 15.7 %; Mean Corpuscular HGB Conc 33.7 g/dL (31.6-35.5); Mean Corpuscular Hemoglobin 29.3 pg (28.0-33.3); Mean Corpuscular Volume 86.9 fL (83.0-100.0); Mean Platelet Volume 10.1 fL (9.4-12.4); Monocytes # 0.7 K/mcL (0.0-1.3); Monocytes % 7.3 %; Neutrophils # 7.1 K/mcL (1.6-8.9); Nucleated Red Blood Cells 0.6 /100 WBC (0); Platelet Count 206 K/mcL (140-400); Red Blood Count 2.97 M/mcL (3.82-4.97); Red Cell Distribution Width 15.6 % (11.5-14.5); Segmented Neutrophils % 73.6 %; White Blood Count 9.6 K/mcL (4.3-11.1)
[2019-05-19 00:48] LABS: Hemoglobin 8.7 g/dL (11.5-15.4)
[2019-05-19 00:52] LABS: BUN/Creatinine Ratio 25 (6-26); Blood Urea Nitrogen 19 mg/dL (8-23); Calcium 8.5 mg/dL (8.6-10.3); Carbon Dioxide 27 mEq/L (23-29); Chloride 98 mEq/L (98-107); Glucose 113 mg/dL (70-105); Osmolality,Calculated 283 (280-300); Potassium 3.4 mEq/L (3.5-5.1); Sodium 135 mEq/L (136-145); eGFR For African Americans > 60 (> 60); eGFR For Non-African Americans > 60 (> 60)
[2019-05-19] MEDS: *HR* OxyCODONE/APAP 5/325 TABLET PO PRN ×4 (06:30→22:51)
[2019-05-19] MEDS: Chlorhexidine Rinse 15 ML MOUTHWASH MM SCH ×2 (08:11→20:51)
[2019-05-19] MEDS: Pantoprazole 40 MG VIAL IVP SCH (08:11)
[2019-05-19] MEDS: hydroCHLOROthiazide 25 MG TABLET PO SCH (08:13)
[2019-05-19] MEDS: Pregabalin 50 MG CAPSULE PO SCH ×2 (08:13→20:56)
[2019-05-19] MEDS: Furosemide 20 MG/2 ML VIAL IVP SCH (08:14)
[2019-05-19] MEDS: Aspirin Enteric Coated 81 MG Tablet PO SCH (08:15)
[2019-05-19] MEDS: Insulin LISPRO 300 UNITS/3 ML VIAL SQ SCH ×4 (08:17→20:53)
--- NOTE | 2019-05-19 08:33 | Cardiothoracic Progress Note ---
Date of Encounter: 05/19/19 Time of Encounter: 08:31 - Assessment and plan (1) Angina of effort Current Visit: Yes Status: Acute The patient's peripheral edema is improved and we will stop the intravenous Lasix. We will change the Toradol from as needed to scheduled. - Subjective Interval history: The patient feels better this morning. She did have a bowel movement, which she describes as hard. She has some pain in her lower thoracic spine. She had 2 compression fractures in this area in October. The pain is better controlled with Toradol. Vital Signs, Last 4 Hours Temp Pulse Resp BP Pulse Ox 05/19/19 07:31 16 93 05/19/19 07:22 97.7 F 73 18 96/56 98 Oxgyen Flow Rate Oxygen Flow Rate (LPM) 3 Weight 05/17/19 05/18/19 05/19/19 23:59 23:59 23:59 Weight 70.5 kg 77.3 kg Lungs are clear to percussion and auscultation. Heart is in a normal sinus rhythm. All incisions are healing well without signs of infection and the sternum is stable. The abdomen is soft with positive bowel sounds. - Labs 05/19/19 00:01 05/19/19 00:01 Lab Results, Last 24 hours 05/19/19 05/19/19 00:01 00:01 WBC 9.6 Hgb 8.7 L D Hct 25.8 L Plt Count 206 Sodium 135 L Potassium 3.4 L Chloride 98 Carbon Dioxide 27 BUN 19 Creatinine 0.76 Glucose 113 H Calcium 8.5 L Consult Discharge Plan - Plan Referrals: Nicholas Ortiz MD [Partnered Physician] - (Per the cardiology office they will call the patient at home with a follow up appointment) David Vo MD [Partnered Physician] - 06/10/19 1:00 pm Juan aMnuel Wong MD [Primary Care Provider] - 05/28/19 9:30 am
[2019-05-19] MEDS: Ketorolac 15 MG/ML VIAL IVP SCH ×2 (12:04→17:15)
[2019-05-19 12:27] LABS: ABG Base Excess -1 mEq/L (-2 to 3); ABG Chloride 105 mEq/L (98-107); ABG Glucose 141 mg/dL (60-95); ABG HCO3 24 mEq/L (21-27); ABG Ionized Calcium 1.21 mmol/L (1.15-1.35); ABG Oxygen Saturation 99 % (95-98); ABG PCO2 38 mmHg (35-45); ABG PO2 130 mmHg (85-104); ABG TCO2 25 mEq/L (20-26)
--- NOTE | 2019-05-19 16:01 | Invasive Diagnostic Lab Proc ---
Name: Angie Vasquez Date of Study: 05/14/2019 Date: 1945 Ht: 63.0in Medical Record#: [id number] Age: 74 Wt: 152.34lb Gender: Female BSA: 1.72 Order #: [id number] BMI: 26.99 Physicians Procedure Physician: Nicholas Ortiz MD Referring MD: Referring MD: Staff Name [facility] Nurse Sohan Arevalo RN Pre-Op Nurse Donny Shay RN Monitor 10:29 AM Arabella Salinas RT (R) Scrub 10:29 AM Akila Ferrera RT (R) Scrub 10:30 AM Asif Curry RN Coder 10:30 AM Procedures Performed Procedure L HRT ARTERY/VENTRICLE ANGIO IABP INSERTION, PERCUTANEOUS Pre-Procedure Checklist Informed consent is complete signed and on chart. H&P is on chart. ID band is on and ID verified with patient. Patient NPO for procedure The procedure was described for the patient and questions were answered. Blood Pressure: 162/64 ECG is on chart. Rhythm: Sinus Bradycardia Plan of Care Patient will tolerate the procedure without complications. Adequate level of comfort will be maintained. Hemodynamics will remain stable Patient will recover from procedure without complications. Respiratory function will be maintained. Cardiac rhythm will remain stable. Patient temperature will be maintained. Patient and/or family have verbalized understanding of the procedure. Patient Education Chief Complaint/Reason for Test: Cardiac Cath Developmental Category: Geriatric (65+ years) Developmentally Appropriate for Age: Yes Learning Barriers: None Education Needs: Procedure Education Method: Verbal Information Taught: Cardiac Cath Educational Evaluation: Able to repeat information Intravenous Access Time IV Size Location DC'd Fluid/Drip Rate Units RN 10:09 AM Started with 22g 1 " Rt Antecubital 0.9NaCl 50 ml/hr Sohan Arevalo RN Started with 18g needle 1 1/4" Lt Antecubital Allergies No Known Allergies Vital Signs Time BP (mmHg) HR (bpm) O2 Sat. RR (bpm) LOC 10:12 AM 162 / 64 66 100 % 16 5 = Fully awake and oriented or at pre-proc level 10:32 AM / % 5 = Fully awake and oriented or at pre-proc level 10:33 AM 160 / 59 69 97 % 15 10:37 AM 129 / 71 66 97 % 19 10:42 AM 139 / 72 67 100 % 16 10:47 AM 144 / 69 66 98 % 20 10:52 AM 161 / 79 67 96 % 19 11:02 AM 171 / 68 70 97 % 30 11:07 AM 161 / 82 68 96 % 15 11:12 AM 180 / 100 72 97 % 8 11:17 AM 185 / 99 72 95 % 20 11:22 AM 155 / 82 64 95 % 17 11:27 AM 122 / 61 58 95 % 19 11:31 AM 89 / 48 44 96 % 17 11:37 AM 92 / 50 47 95 % 21 11:42 AM 90 / 57 55 93 % 18 11:47 AM 106 / 54 60 96 % 17 11:52 AM 113 / 49 63 95 % 15 Procedural Medications Time Medication Dose Units Method Given By 10:33 AM Oxygen 2 L/min nasal cannula Asif Curry RN 10:33 AM Versed 2 mg Intravenous Asif Curry RN 10:39 AM Lidocaine 2% 1 ml Subcutaneous Nicholas Ortiz MD 10:41 AM Heparin 4000 units Nitroglycerin 200 mcg Verapamil 2.5 mg Intraarterial Nicholas Ortiz MD 10:56 AM Fentanyl 50 mcg Intravenous Asif Curry RN 10:57 AM Heparin 2000 units Intravenous Asif Curry RN 11:15 AM Versed 2 mg Intravenous Asif Curry RN 11:25 AM Nitro Irwin 0.4 mg Sublingual Asif Curry RN 11:26 AM Nitroglycerin 10 mcg/hr Intravenous Asif Curry RN 11:27 AM Nitroglycerin 5 mcg/min Intravenous Asif Curry RN ASA Classification: CLASS II- Mild systemic disease (i.e. well-controlled diabetes, hypertension, asthma, cigarette smoking) Ramón Score Preprocedure Postprocedure Activity 2- Moves 4 extremities sustained head lift Activity 2- Moves 4 extremities sustained head lift Circulation 2- SBP +/= 20 points of pre-anesthetic level Circulation 2- SBP +/= 20 points of pre-anesthetic level Consciousness 2- Awake and alert oriented x 3 Consciousness 2- Awake and alert oriented x 3 O2 Saturation 2- Able to maintain O2 satruation of 92% on room air O2 Saturation 2- Able to maintain O2 satruation of 92% on room air Respiratory 2- Able to deep breathe and cough well Respiratory 2- Able to deep breathe and cough well Total Score 10 Total Score 10 Contrast Agent: Isovue Diagnostic Contrast: 100 ml Total Contrast: 100 ml Fluoro Dose: 33 mGy Procedure Log Time Note Enter By 10:11 AM Risk for fall? Yes, Medications (change in amt./frequency,newly prescribed,potential combinations) tsites 10:11 AM Evidence of mental, physical, or emotional abuse? No tsites 10:11 AM Does patient have suicidal ideations? No tsites 10:29 AM Pt arrived to dairy and food laboratory assistant 2 at 10:29 oparker 10:29 AM Donny Shay RN Position: Monitor Time in: 10: oparker 10:30 AM Arabella Salinas RT (R) Position: Scrub Time in: : oparker 10:30 AM Akila Ferrera RT (R) Position: Scrub Time in: 10:30 oparker 10:30 AM Asif Curry RN Position: Coder Time in: 10:30 oparker 10:30 AM Patient charges- Angio tray pack, Navilyst 3mm J, Pulse Oximetry and ACIST tubing and transducer oparker 10:30 AM IV Supplies used: J loop Angio Cath. oparker 10:31 AM Physician arrived 10:31 oparker 10:31 AM Meet and greet completed oparker 10:31 AM Sign in performed according to hospital policy. Informed consent was obtained. oparker 10:31 AM CathStat 10:31 AM Vitals capture started with the following parameters, Patient=Adult, Interval=5 min, Initial Nqpzznzj=561 mmHg, Deflation Rate=3 mmHg, Cuff placed on Right Arm 10:32 AM Procedure start 10:32 oparker 10:32 AM Time: 10:32 Patient comfortable and pain free: Yes oparker 10:32 AM Time: 10:32LOC: 5 = Fully awake and oriented or at pre-proc level oparker 10:33 AM HR=69 bpm, RJGG=216/59 mmhg, SpO2=97.0 %, Resp=15 B/min, Comment=nsr 10:33 AM Time: 10:33 Oxygen on at 2 L/min per nasal cannula by Asif Curry RN oparnaz 10:33 AM Time: 10:33 Versed 2 mg Intravenous Given by Asif Curry RN oparker 10:33 AM Hair removed from procedure site in holding area using clippers. Right wrist and Right groin prepped with Chloraprep by Akila Ferrera), then patient was draped. Skin intact. oparker 10:37 AM Time out was performed according to hospital policy. Conscious sedation and anesthesia was achieved (see medication log with in this report above) jcallihan 10:37 AM HR=66 bpm, EWPS=829/71 mmhg, SpO2=97.0 %, Resp=19 B/min, Comment=nsr 10:37 AM ASA Class CLASS II- Mild systemic disease (i.e. well-controlled diabetes, hypertension, asthma, cigarette smoking) jcallihan 10:39 AM Time: 10:39 1 ml Lidocaine 2% to right radial Subcutaneous Given by Nicholas Ortiz MD jcallihan 10:39 AM Pressure channel 2 zeroed. 10:39 AM Recorded ECG: HR=65 Condition=Condition 1 10:40 AM Access obtained by percutaneous puncture. 5/6Fr 10cm Terumo Glidesheath sheath placed in right Radial artery. [id number] jcallihan 10:41 AM Time: 10:41 Patient given 4,000 units Heparin, 200 mcg Nitroglycerin, and 2.5 mg Verapamil Intraarterial by Nicholas Ortiz MD. This is given to reduce risk of vessel spasm and thrombosis. jcallihan 10:42 AM HR=67 bpm, JNUY=533/72 mmhg, AyS2=274.0 %, Resp=16 B/min, Comment=nsr 10:42 AM 5Fr FL 4 catheter inserted over the wire [facility] jcallihan 10:43 AM Recorded Pressure: Ao, HR=67, Condition=Condition 1 (Aorta) Ao 140/78/103 10:44 AM LCA angiography performed in multiple views. jcallihan 10:45 AM Catheter removed jcallihan 10:46 AM 5Fr FR 4 catheter inserted over the wire DN jcallihan 10:47 AM RCA angiography performed in multiple views. jcallihan 10:47 AM Recorded Pressure: Ao, HR=71, Condition=Condition 1 (Aorta) Ao 163/85/118 10:47 AM HR=66 bpm, ZFIE=056/69 mmhg, SpO2=98.0 %, Resp=20 B/min, Comment=nsr 10:48 AM Catheter removed jcallihan 10:50 AM 5Fr Pigtail catheter inserted over the wire [facility] jcallihan 10:50 AM Catheter removed jcallihan 10:50 AM 5Fr FR 4 [facility] Catheter crossed the aortic valve and was selectively placed in the left ventricle. Pressures recorded on pullback for left heart catheterization. jcallihan 10:51 AM Recorded Pressure: LV, HR=68, Condition=Condition 1 (Left Ventricle) LV 181/22/32 10:52 AM Recorded Pressure: LV, Ao, HR=72, Condition=Condition 1 (Left Ventricle) LV 184/18/26, (Aorta) Ao 192/94/133 10:52 AM HR=67 bpm, LUPW=894/79 mmhg, SpO2=96.0 %, Resp=19 B/min, Comment=nsr 10:54 AM Bolus angiogram of left Ventricle complete: 10 ml/sec for a total of 10 mls jcallan 10:54 AM Catheter removed jcallan 10:55 AM [facility] AM PCI Status Urgent jcallihan 10:55 AM 6Fr JR 4 Runway guide catheter was used to cannulate the PCI vessel successfully. reused? No jcallihan 10:55 AM .014 Balance 300cm guide wire across target lesion- successful. reused? No [facility] 10:[facility] AM Inflation device was opened. jcallihan 10:56 AM Time: 10:56 Fentanyl 50 mcg Intravenous Given by Asif Curry RN [facility] 10[facility]57 AM Time: 10:57 Heparin 2000 units Intravenous Given by Asif Curry RN [facility] 11:01 AM Recorded Pressure: Ao, HR=67, Condition=Condition 1 (Aorta) Ao 170/67/109 11:02 AM HR=70 bpm, KBKF=664/68 mmhg, SpO2=97.0 %, Resp=30 B/min, Comment=nsr 11:03 AM Recorded Pressure: Ao, HR=69, Condition=Condition 1 (Aorta) Ao 150/70/104 11:05 AM Guide wire removed intact. jcallihan 11:05 AM .014 Choice Extra Support 300cm guide wire across target lesion- successful. reused? No jcallihan 11:07 AM HR=68 bpm, WYCI=165/82 mmhg, SpO2=96.0 %, Resp=15 B/min, Comment=nsr 11:12 AM HR=72 bpm, STKV=466/100 mmhg, SpO2=97.0 %, Resp=8 B/min 11:14 AM 2.5 mm x 15 mm Emerge OTW balloon across target lesion- successful. reused? No [facility] 11:14 AM Balloon catheter removed intact, unable to cross lesion [facility] 11:14 AM Guide wire removed intact. [facility] 11:14 AM re-inserting 300 cm Balance guidewire. [facility] 11:15 AM Time: 11:15 Versed 2 mg Intravenous Given by Asif Curry RN [facility] 11:17 AM HR=72 bpm, TXAA=821/99 mmhg, SpO2=95 %, Resp=20 B/min 11:18 AM Guide catheter removed intact. [facility] 11:18 AM Guide wire removed intact. [facility] 11:20 AM Conversation between Interventionalist and CT Surgeon. [facility] 11:20 AM Cardiothoracic surgeon consulted by physician paula 11:22 AM HR=64 bpm, CSFW=029/82 mmhg, SpO2=95 %, Resp=17 B/min 11: AM Time: 11:25 Nitro Irwin 0.4 mcg Sublingual [facility] 11:27 AM Time: 11: Nitroglycerin 10 mcg/hr Intravenous Given by Asif Curry RN 11:27 AM HR=58 bpm, SEOW=501/61 mmhg, SpO2=95 %, Resp=19 B/min 11: AM Time: 11: Nitroglycerin 5 mcg/min Intravenous Given [facility] Asif [facility] 11: AM Nitroglycerin gtt stopped. [facility] 11:29 AM NIBP STAT measurement started. 11:31 AM HR=44 bpm, NIBP=89/48 mmhg, SpO2=96 %, Resp=17 B/min 11:32 AM 8 Fr Maquet Balloon Pump IABP catheter inserted into right Femoral artery, 40 cc, *ACC* catheter inserted 11 jcallihan 11:37 AM HR=47 bpm, NIBP=92/50 mmhg, SpO2=95 %, Resp=21 B/min 11:42 AM HR=55 bpm, NIBP=90/57 mmhg, SpO2=93 %, Resp=18 B/min 11:44 AM IABP Settings: 1:1 ratio ECG [facility] 11[facility] AM IABP Augmented pressure, mean: 109 jcallihan 11:44 AM IABP Systemic BP: 90/57 jcallihan 11:46 AM Procedure completed at 11:46 05/14/2019 [facility] 11:46 AM Did you address ESTRELLA flow and Dominance? YesCoronary Dominance: right jcallihan 11:47 AM HR=60 bpm, COOU=961/54 mmhg, SpO2=96 %, Resp=17 B/min 11:49 AM labs drawn and mrsa swab obtained jcallihan 11:52 AM HR=63 bpm, KPOB=711/49 mmhg, SpO2=95 %, Resp=15 B/min 11:52 AM Sign out completed: Radiation Dose 398 mGy, 33 Gy/cm2 Fluoro Time: 11.6 Isovue 370 - 200ml contrast 100 ml given by Nicholas Ortiz MD. Complications: None. 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 Sedation minutes 120. Cardiac Rehab Consult needed: Yes. Confirmed administered medications: Yes jcallihan 11:53 AM Isovue 370 - 200ml,2 Bottle(s) used. allih 11:53 AM Sheath left in place to be pulled on floor/holding areaV+Pad jcallihan 11:53 AM Estimated Blood Loss: less than 20cc jcallihan 11:54 AM Post ECG NSR jcallihan 11:54 AM Post Blood Pressure 113/49 jcallan 11:54 AM 11:54 Post Pulses Bilateral DP & PT 2+ jcallihan 11:54 AM Information taught Cardiac Cath [facility] 11:54 AM Education needs Procedure, Plan of Care, and Responsibilities of [facility] 11:[facility] AM Learning barriers :None [facility] 11:54 AM Education Methods Verbal [facility] 11:54 AM Education evaluation Able to repeat information [facility] 11:55 AM Site status No bleeding/ No Hematoma - Rt Groin and right wrist as reported by Arabella Salinas RT (R) at 11:54 [facility] 12:[facility] PM Report given to Pili TABARES Pt taken to ICU Room #10. 12:01 jcallihan 12:01 PM Delay to floor No jcallihan 12:01 PM Family placed in consult room. jcallihan 12:[address] chakraborty in lab to speak with patient jcallelisabeth 12:05 PM Lesion found in Mid RCA. Pre Stenosis: 95 Pre ESTRELLA Flow: jcallihan 12:07 PM Lesion found in Distal LAD. Pre Stenosis: 50 Pre ESTRELLA Flow: jcallihan 12:07 PM Patient out of room: 12:07 jcallihperry Complications Complication None Hemodynamics Pressures Site Systolic/A Wave Diastolic/V Wave Mean AO 140 78 103 AO 163 85 118 LV 181 22 32 LV 184 18 26 AO 192 94 133 AO 170 67 109 AO 150 70 104 Post Procedure Information Blood Pressure: 113/49 mmHg Rhythm: NSR Post procedural instructions were given Surgery consult for CABG Closure Device Time Device Success/Fail 05/14/2019 12:01:00 PM Manual Compression Site Checks Time Location Status Staff Sheath In? Note 11:54 AM Rt Groin and right wrist No bleeding/ No Hematoma Arabella Salinas RT (R) Pulses Time Site Pre-Procedure Post-Procedure Note 05/14/2019 10:11:00 AM Bilateral DP & PT 1+ 05/14/2019 10:11:00 AM Bilateral radial 2+ 11:54:00 AM Bilateral DP & PT 1+ Updated by Nicholas Ortiz MD on 05/18/2019 9:13:36 AM electronically signed on 05/19/2019 3:54:23 PM with status of Final
[2019-05-20] MEDS: Ketorolac 15 MG/ML VIAL IVP SCH ×4 (00:15→17:27)
[2019-05-20 05:20] LABS: Basophils # 0.1 K/mcL (0.0-0.2); Basophils % 0.6 %; Eosinophils # 0.2 K/mcL (0.0-0.6); Eosinophils % 2.7 %; Hemoglobin 8.6 g/dL (11.5-15.4); Immature Granulocytes % 1.3 % (0-4); Lymphocytes # 1.4 K/mcL (0.6-4.6); Lymphocytes % 16.4 %; Mean Corpuscular HGB Conc 33.1 g/dL (31.6-35.5); Mean Corpuscular Hemoglobin 29.2 pg (28.0-33.3); Mean Corpuscular Volume 88.1 fL (83.0-100.0); Monocytes # 0.6 K/mcL (0.0-1.3); Monocytes % 6.8 %; Neutrophils # 6.1 K/mcL (1.6-8.9); Nucleated Red Blood Cells 0.2 /100 WBC (0); Platelet Count 235 K/mcL (140-400); Red Blood Count 2.95 M/mcL (3.82-4.97); Red Cell Distribution Width 15.5 % (11.5-14.5); Segmented Neutrophils % 72.2 %; White Blood Count 8.4 K/mcL (4.3-11.1)
[2019-05-20 05:36] LABS: Potassium 4.3 mEq/L (3.5-5.1)
[2019-05-20 06:04] LABS: BUN/Creatinine Ratio 42 (6-26); Blood Urea Nitrogen 31 mg/dL (8-23); Calcium 8.8 mg/dL (8.6-10.3); Carbon Dioxide 27 mEq/L (23-29); Chloride 95 mEq/L (98-107); Glucose 107 mg/dL (70-105); Osmolality,Calculated 281 (280-300); Sodium 132 mEq/L (136-145); eGFR For African Americans > 60 (> 60); eGFR For Non-African Americans > 60 (> 60)
--- NOTE | 2019-05-20 07:26 | Cardiothoracic Progress Note ---
Date of Encounter: 05/20/19 Time of Encounter: 07:25 - Assessment and plan (1) Angina of effort Current Visit: Yes Status: Acute We will continue to ambulate the patient today and plan to discharge her tomorrow. - Subjective Interval history: The patient has had more bowel movements. Her back and postoperative pain are well controlled. Vital Signs, Last 4 Hours Temp Pulse Resp BP Pulse Ox 05/20/19 07:22 98.7 F 80 18 93/52 97 05/20/19 05:14 95 05/20/19 04:19 16 95 05/20/19 04:02 98.3 F 68 20 101/35 98 Oxgyen Flow Rate Oxygen Flow Rate (LPM) 3 Weight 05/18/19 05/19/19 05/20/19 23:59 23:59 23:59 Weight 77.3 kg 79.2 kg Lungs are clear to percussion and auscultation. Heart is in a normal sinus rhythm. All incisions are healing well without signs of infection and the sternum is stable. - Labs 05/20/19 04:34 05/20/19 04:34 Lab Results, Last 24 hours 05/20/19 05/20/19 04:34 04:34 WBC 8.4 Hgb 8.6 L Hct 26.0 L Plt Count 235 Sodium 132 L Potassium 4.3 Chloride 95 L Carbon Dioxide 27 BUN 31 H Creatinine 0.73 Glucose 107 H Calcium 8.8 Consult Discharge Plan - Plan Referrals: Nicholas Ortiz MD [Partnered Physician] - (Per the cardiology office they will call the patient at home with a follow up appointment) David Vo MD [Partnered Physician] - 06/10/19 1:00 pm Jaun Manuel Wong MD [Primary Care Provider] - 05/28/19 9:30 am
[2019-05-20] MEDS: Insulin LISPRO 300 UNITS/3 ML VIAL SQ SCH ×4 (08:04→20:56)
[2019-05-20] MEDS: Chlorhexidine Rinse 15 ML MOUTHWASH MM SCH ×2 (08:18→21:03)
[2019-05-20] MEDS: Pantoprazole 40 MG VIAL IVP SCH (08:18)
[2019-05-20] MEDS: Pregabalin 50 MG CAPSULE PO SCH ×2 (08:19→21:03)
[2019-05-20] MEDS: Aspirin Enteric Coated 81 MG Tablet PO SCH (08:19)
[2019-05-20] MEDS: hydroCHLOROthiazide 25 MG TABLET PO SCH (08:19)
[2019-05-20] MEDS: *HR* OxyCODONE/APAP 5/325 TABLET PO PRN ×3 (08:19→21:03)
[2019-05-21] MEDS: Ketorolac 15 MG/ML VIAL IVP SCH ×2 (00:10→06:21)
[2019-05-21 01:31] LABS: Basophils % 0.5 %; Eosinophils # 0.3 K/mcL (0.0-0.6); Eosinophils % 2.9 %; Hematocrit 24.3 % (35.3-44.9); Hemoglobin 7.9 g/dL (11.5-15.4); Immature Granulocytes % 1.5 % (0-4); Lymphocytes # 1.5 K/mcL (0.6-4.6); Lymphocytes % 17.5 %; Mean Corpuscular HGB Conc 32.5 g/dL (31.6-35.5); Mean Corpuscular Hemoglobin 28.8 pg (28.0-33.3); Mean Corpuscular Volume 88.7 fL (83.0-100.0); Mean Platelet Volume 9.9 fL (9.4-12.4); Monocytes # 0.7 K/mcL (0.0-1.3); Monocytes % 8.1 %; Neutrophils # 5.9 K/mcL (1.6-8.9); Platelet Count 253 K/mcL (140-400); Red Blood Count 2.74 M/mcL (3.82-4.97); Red Cell Distribution Width 15.3 % (11.5-14.5); Segmented Neutrophils % 69.5 %; White Blood Count 8.6 K/mcL (4.3-11.1)
[2019-05-21 01:53] LABS: BUN/Creatinine Ratio 33 (6-26); Blood Urea Nitrogen 30 mg/dL (8-23); Calcium 8.3 mg/dL (8.6-10.3); Carbon Dioxide 25 mEq/L (23-29); Chloride 97 mEq/L (98-107); Glucose 116 mg/dL (70-105); Osmolality,Calculated 279 (280-300); Potassium 4.4 mEq/L (3.5-5.1); Sodium 131 mEq/L (136-145); eGFR For African Americans > 60 (> 60); eGFR For Non-African Americans 60 (> 60)
[2019-05-21] MEDS: *HR* OxyCODONE/APAP 5/325 TABLET PO PRN ×2 (03:16→12:22)
[2019-05-21 07:30] VITALS: BP 96/50
[2019-05-21] MEDS: Pregabalin 50 MG CAPSULE PO SCH (08:07)
[2019-05-21] MEDS: Chlorhexidine Rinse 15 ML MOUTHWASH MM SCH (08:07)
[2019-05-21] MEDS: hydroCHLOROthiazide 25 MG TABLET PO SCH (08:07)
[2019-05-21] MEDS: Insulin LISPRO 300 UNITS/3 ML VIAL SQ SCH (08:08)
[2019-05-21] MEDS: Pantoprazole 40 MG VIAL IVP SCH (08:08)
[2019-05-21] MEDS: Aspirin Enteric Coated 81 MG Tablet PO SCH (08:09)
--- NOTE | 2019-05-21 09:04 | Discharge Summary ---
Date of Encounter: 05/21/19 Time of Encounter: 08:58 - Discharge Diagnosis (1) Angina of effort Priority: Primary Status: Acute - Hospital Course Hospital course: Ms. Vasquez is a 74 year old female The patient is a 74-year-old female who underwent cardiac catheterization for angina which revealed a tight, long 99% right coronary artery lesion. A wire could not be passed and angioplasty could not be done. She had chest pain in the cardiac catheterization lab and was started on a nitroglycerin drip. Shortly after this, she had recurrent chest pain and an intra-aortic balloon pump was placed. On 05/14/2019, I took her to the operating room for coronary artery bypass grafting 1. We did not use a left internal mammary artery graft as the circumflex and LAD did not need to be bypassed. On postoperative day #1, the anterior aortic balloon pump was removed. On postoperative day #2, the chest tubes were removed. The patient did have the usual, expected acute postoperative blood loss anemia and did receive 3 units of packed red blood cells. She otherwise did well and was discharged on May 21. At that time, she was afebrile. Lungs were clear to percussion and auscultation. Heart was in a normal sinus rhythm. All incisions were healing well without signs of infection and the sternum was stable. Discharge medications are on the med rec and include narcotics for pain. I did check the [place] automated Rx reporting system. She was postoperative and was given a one-week supply. The usual precautions were given. She was to return to her previous and regular diet. She was to avoid heavy lifting for a total of 3 months after surgery. She was to walk as much as possible. She was to avoid driving for 1 month. She was to follow up and see me in the office in 4 weeks as directed. She was to follow-up with her family doctor and pull over as directed. She was to call sooner for any difficulties. - Time Spent with Patient Total time spent providing and/or coordinating discharge services: - Discharge Medications Prescriptions: New Aspirin Enteric Coated [Aspirin EC] 81 mg PO DAILY #60 tablet. Atorvastatin [Lipitor] 40 mg PO HS #30 tablet OxyCODONE/APAP 5/325 [Percocet 5/325 MG] 1 each PO Q4HR PRN 7 Days #20 tablet PRN Reason: Severe Pain Continued Pregabalin [Lyrica] 50 mg PO BID Nitroglycerin [Nitrostat] 0.4 mg SL Q5M PRN PRN Reason: Chest Pain Metoprolol Succinate [Toprol Xl] 50 mg PO DAILY hydroCHLOROthiazide [Hydrochlorothiazide] 25 mg PO DAILY Sertraline [Zoloft] 50 mg PO DAILY Discontinued Losartan Potassium [Cozaar] 100 mg PO DAILY Home Medications: Sertraline [Zoloft] 50 mg PO DAILY 10/09/18 [History] hydroCHLOROthiazide [Hydrochlorothiazide] 25 mg PO DAILY 10/09/18 [History] Metoprolol Succinate [Toprol Xl] 50 mg PO DAILY 05/14/19 [History] Nitroglycerin [Nitrostat] 0.4 mg SL Q5M PRN 05/14/19 [History] Pregabalin [Lyrica] 50 mg PO BID 05/14/19 [History] Aspirin Enteric Coated [Aspirin EC] 81 mg PO DAILY #60 tablet. 05/21/19 [Rx] Atorvastatin [Lipitor] 40 mg PO HS #30 tablet 05/21/19 [Rx] OxyCODONE/APAP 5/325 [Percocet 5/325 MG] 1 each PO Q4HR PRN 7 Days #20 tablet 05/21/19 [Rx] Allergies/Adverse Reactions: Allergy/AdvReac Type Severity Reaction Status Date / Time No Known Allergies Allergy Verified 10/16/17 21:56 Date of admission: 05/14/19 12:25 Primary care physician: Juan Manuel Wong MD Consults: 05/14/19 16:08 Consult to Cardiac Rehabilitation-Phase1 [CONS] Routine Comment: Reason for Consult: Post open heart Call Completed: Yes Consult to [facility] [CONS] Routine Reason for SW Consult: open heart Procedure(s) Performed: 05/14/2019. Coronary artery bypass grafting 1 with a saphenous vein graft to the posterior descending branch of the right coronary artery. Discharging clinician: David Vo Anticipated date of discharge: 05/21/19 Physical Examination Vital Signs, Last 4 Hours Temp Pulse Resp BP Pulse Ox 05/21/19 07:24 97.6 F 98 18 96/50 94 - Patient Status Disposition: Home, Self-Care Condition: Fair Functional capacity at discharge: independent ambulation Overall status at discharge: patient is progressing back to baseline - Discharge Instructions Follow Up With: Nicholas Ortiz MD [Partnered Physician] - (Per the cardiology office they will call the patient at home with a follow up appointment) David Vo MD [Partnered Physician] - 06/10/19 1:00 pm Juan Manuel Wong MD [Primary Care Provider] - 05/28/19 9:30 am Open Heart Registry Aspirin Cont/Prescribed at DC: Yes Beta Marcia Cont/Prescribed at DC: Yes Statin Cont/Prescribed at DC: Yes DEREJE/ARB Cont/Prescribed at DC: Not indicated
== END 2019-05-21 13:48 | disposition home or self-care (01) | DRG 234 ==
LOC: INVDIALAB 09:33 → ICNU 12:25 → 2NNU 05-16 15:44
PROVIDERS: ADMIT Thoracic Surgery (Cardiothoracic Vascular Surgery); ATTEND Thoracic Surgery (Cardiothoracic Vascular Surgery)